=== PATIENT | female | born 1950 | race Caucasian/White ===

== ENCOUNTER → 2023-06-12 11:55 | Outpatient (REF) | payer MEDICARE, OTHER, SELFPAY | LOC: REG 11:55 | PROVIDERS: ATTENDING PHYSICIAN Nurse Practitioner Primary Care | DX: C50.911 Malignant neoplasm of unspecified site of right female breast (principal); M81.0 Age-related osteoporosis without current pathological fracture; C79.51 Secondary malignant neoplasm of bone; C78.7 Secondary malignant neoplasm of liver and intrahepatic bile duct; C79.32 Secondary malignant neoplasm of cerebral meninges; L63.0 Alopecia (capitis) totalis; D64.81 Anemia due to antineoplastic chemotherapy; F43.21 Adjustment disorder with depressed mood | CPT/HCPCS: 36415; 86850; 86900; 86901; 86920 ==

== ENCOUNTER 2023-06-14 12:47 | Outpatient (RCR) | payer MEDICARE, OTHER, SELFPAY ==
[2023-06-14 13:39] VITALS: BP 117/68
[2023-06-14 13:56] VITALS: BP 116/68
[2023-06-14 15:42] VITALS: BP 112/67
== END 2023-06-15 23:59 | disposition home or self-care (01) ==
LOC: OID 12:47
PROVIDERS: ATTENDING PHYSICIAN Internal Medicine Hematology & Oncology; FAMILY PHYSICIAN Family Medicine
DX: C50.911 Malignant neoplasm of unspecified site of right female breast (principal)
CPT/HCPCS: 36415; 36430; 86850; 86900; 86901; 86920; P9016

== ENCOUNTER 2023-07-13 17:32 | Inpatient (IN) | payer MEDICARE, OTHER, SELFPAY ==
[2023-07-13 13:22] VITALS: BP 102/75; BMI 17.2
--- NOTE | 2023-07-13 14:31 | ED.GENMED ---
History of Present Illness
General
Chief Complaint: Abnormal Lab Value
Source: patient and family
Time Seen by Provider: 07/13/23 13:58
Travel History
Have you had any contact with someone who has COVID-19?: No
Do you have any symptoms of coronavirus? Fever > 100 degrees, chills, cough, shortness of breath, sore throat, loss of taste or smell, muscle aches, or headache?: No
History of Present Illness
History of Present Illness:
72-year-old female with past medical history of metastatic breast cancer, CAD, previous TX presenting to the emergency department with family stating that patient had lab work done at [facility] yesterday and they got a phone call this morning stating
that it was abnormal and she needed to go to the hospital. They note that over the last few days patient has gotten very weak, having a difficult time caring for herself and performing her activities of daily living. Patient was recently moved
from [place] to a single-story apartment) to be closer to family but they state that patient is now not even able to get up and walk to the bathroom on her own. Patient last chemo was on June 26 and she is scheduled to start a new round on this
coming Monday. They endorse a mild cough with green sputum production and some mild shortness of breath. Patient has not had any known fevers, change in oral intake, abdominal pain or any other concerns. Her diagnosis is fairly guarded and they
just had a palliative care consultation within the last 2 days.
Patient's daughter had picture of the abnormal labs from [employer] that were done yesterday which showed a significant leukocytosis, significantly elevated ANC, acute kidney injury and mild transaminitis
Past History
Past History
ED Past Medical History: CAD, COPD, Hypercholesterolemia and TX
ED Past Surgical History: Cardiac and Other
Social History
Tobacco: Smoker
Alcohol: None
Drug: None
Personal:
Living: alone
Employment: Retired
Review of Systems
Review of Systems
All Other Systems: ROS reviewed and negative except as documented in HPI and ROS
Phy Exam
Physical Exam
Physical Exam:
GENERAL: Alert , in no apparent distress
EYE: conjunctiva clear
NECK: Supple
ENT: o/p clr, mmm.
CARDIAC: Regular rate and rhythm
LUNGS: Crackles diffuse posterior lung galvan, no acute respiratory distress, no wheezes/rales/rhonchi
abdomen: Soft, nontender, nondistended.
NEUROLOGICAL: Alert and oriented x 3 but does seem a little bit confused when speaking full sentences
SKIN: Warm and dry, skin intact.
MUSCULOSKELETAL: well perfused. 2+ pitting bilateral lower extremities to the proximal third tibia.
PSYCH: Normal and appropriate interaction.
Scores
Heart Failure Risk
Heart Failure Risk Score: Not Applicable
Heart Score for Chest Pain Patients
STEMI patient?: Not applicable
Withdrawal Assessment of Alcohol
Withdrawal Assessment Completed?: Not applicable
Course
Orders/Labs/Results
Orders:
Orders
07/13/23 14:21
Urinalysis Reflex To Culture Urgent
Date Specimen was Collected: 07/13/23
Time Specimen was Collected: 14:55
07/13/23 14:30
Lactic Acid Q4H
Comment: CANCEL 2nd LACTIC ACID IF 1st LACTIC ACID IS LESS THAN 2
07/13/23 14:38
Cefepime HCl [Maxipime] 2,000 mg IV NOW STA
07/13/23 14:39
Furosemide [Lasix] 40 mg IV NOW STA
07/13/23 14:43
Complete Blood Count/With Diff Urgent
Comprehensive Metabolic Panel Urgent
Lactic Acid Q4H
Comment: CANCEL 2nd LACTIC ACID IF 1st LACTIC ACID IS LESS THAN 2
Manual Differential Urgent
NT-proBNP Urgent
07/13/23 15:15
Blood Culture Q30M
MIKE Source: Blood/Venous
Specimen Description:
Blood Culture Q30M
MIKE Source: Blood/Venous
Specimen Description:
07/13/23 15:25
Influenza A+B Rapid Molecular Urgent
MIKE Source: Nasal Swab
Specimen Description:
07/13/23 16:29
Admit/Transfer Patient As Directed
Co-Sign Provider:
Level of Care: Inpatient admission
Assign to:: Telemetry
Physician / Group: evans
Diagnosis: pneumonia, chf exacerbation
Reason for Telemetry: Arrhythmia
Date to Stop Telemetry: 07/16/23
Time to Stop Telemetry: 11:00
Reason for Hospitalization: pneumonia, chf exacerbation
Expected length of stay greater than two midnights?: Yes
ELOS- Estimated Length of Stay in days: 2
I certify the patient meets the requirements for IP care: Yes
07/13/23 16:30
Code Status As Directed
Resuscitation Status: Full Code
07/13/23 16:32
CT Chest With Iv Contrast Urgent
Comment:
Reason For Exam: loculated effusion, empyema, lung mets
COVID-19 Antigen Urgent
Source: Nasal Swab
07/13/23 16:35
Respiratory Culture/Gram Stain Urgent
MIKE Source: Sputum
Specimen Description:
07/16/23 11:00
DC Protocol for Telemetry ONCE
Abnormal Lab Results
07/13/23
14:43
WBC 29.6 H 10^3/uL
(4.8-10.8)
RBC 2.95 L 10^6/uL
(4.20-5.40)
Hgb 8.0 L g/dL
(12.0-16.0)
Hct 25.2 L %
(37.0-47.0)
MCHC 31.7 L g/dL
(33.0-37.0)
RDW 24.6 H %
(11.5-14.5)
MPV 10.6 H fL
(7.4-10.4)
Abs Neuts (Manual) 21.9 H 10^3/uL
(1.4-6.5)
Band Neutrophils 23 H %
(0-3)
Lymphocytes (Manual) 4 L %
(20-51)
Sodium 132 L mmol/L
(135-145)
BUN 43 H mg/dl
(7-17)
AST 62 H U/L
(14-36)
ALT 49 H U/L
(0-35)
Alkaline Phosphatase 188 H U/L
(38-126)
Total Protein 6.0 L g/dl
(6.3-8.2)
Albumin 3.2 L g/dl
(3.5-5.0)
07/13/23 14:43
07/13/23 14:43
Vital Signs
Initial and Last Documented VS:
Initial Vital Signs
Temp Pulse Resp BP Pulse Ox
97.8 F 74 20 102/75 94
07/13/23 13:22 07/13/23 13:22 07/13/23 13:22 07/13/23 13:22 07/13/23 13:22
Last Documented Vital Signs
Temp Pulse Resp BP Pulse Ox
97.8 F 74 20 102/75 94
07/13/23 13:22 07/13/23 15:23 07/13/23 13:22 07/13/23 15:23 07/13/23 13:22
MDM/Problems Addressed
Differential Diagnosis Includes:
Pneumonia, viral syndrome progression of metastatic disease, pleural effusions
MDM/Problems Addressed:
72-year-old female with known past medical history of metastatic breast cancer, currently receiving chemotherapy presenting emergency department for gradual decline in her ability to care for self and perform activities of daily living. Had
abnormal blood work done yesterday which showed significant leukocytosis with elevated ANC. Clinical concern for sepsis given patient's compromised immune system. Will check labs, chest x-ray and septic. Anticipate admission. Patient follows
with oncology here at [facility], Dr. Szymanski
*Radiology
Radiology exam reviewed: preliminary read by ED provider (Interstitial edema, question left lower lobe lung infiltrate)
*Pulse Oximetry
Patient hypoxic: no
*[employer] Interpretation
Rate: normal
Rhythm: sinus
*Critical Care Note
Total Time (30-74mins, 75-104mins- exclusive of procedures): Not Applicable
Data Reviewed
Review of Other/Old Records Reveals: Labs and Radiology Studies
Patient Management
Discussion with other providers: Hospitalist
Escalation/DeEscalation of care consider admission/obs:
Patient with worsening leukocytosis, bandemia and significantly elevated ANC. Acute kidney injury improved from yesterday's lab work. BNP significantly elevated at greater than 11,000. Lasix and IV Maxipime. Hospitalist team is aware and accepts
for continued evaluation and treatment.
ED Attending Note
-
Portions of this chart may have been created with voice recognition software.� Occasional wrong word or��sound alike� substitutions may have occurred due to the inherent limitations of voice recognition software.
Discharge Plan
Departure
Patient Disposition: Admit
Date of Disposition: 07/13/23
Time of Disposition: 15:24
Presentation/result/management discussed w/ accepting MD/DO: Hospitalist
Discharge Problem:
Pneumonia, CHF (congestive heart failure)
Prescriptions:
No Action
memantine 10 mg Tablet
10 mg PO BID
Xtampza ER 9 mg Cap,Sprinkl,Er12hr(Dont Crush)
9 mg PO BID
sertraline [Zoloft] 25 mg Tablet
25 mg PO DAILY
ondansetron HCl 4 mg Tablet
4 mg PO Q8HPRN PRN (Reason: nausea)
acetaminophen [Tylenol] 325 mg Tablet
650 mg PO Q4HPRN PRN (Reason: mild pain)
docusate sodium [Colace] 100 mg Capsule
100 mg PO HS
xylitol 500 mg Muco-Adhesive Buccal Tablet
1 mg MUCOUS MEMBRANE Q2HPRN PRN (Reason: dry mouth)
Referrals:
Mahogany Freitas MD [Family Provider] -
Interventions
Interventions:
*Risk Screen - Suicide Last Done: 07/13/23 13:22
*Neglect/Abuse Screening Last Done: 07/13/23 13:22
ED- Fall Risk Assessment Last Done: 07/13/23 13:22
*ED COVID-19 Vaccine History Last Done: 07/13/23 13:22
Discharge Date and Time
Print Language: IRISH
[2023-07-13 15:06] LABS: Hematocrit 25.2 % (37.0-47.0); Mean Corp Hgb Conc. 31.7 g/dL (33.0-37.0); Mean Corpuscular Hgb 27.1 pg (27.0-31.0); Mean Corpuscular Volume 85.4 fL (81.0-99.0); Mean Platelet Volume 10.6 fL (7.4-10.4); Platelet Count 138 10^3/uL (130-400); Red Blood Cell Count 2.95 10^6/uL (4.20-5.40); Red Cell Dist. Width 24.6 % (11.5-14.5); White Blood Cell Count 29.6 10^3/uL (4.8-10.8)
[2023-07-13 15:08] LABS: Lactic Acid 1.1 mmol/L (0.7-2.0)
[2023-07-13 15:09] LABS: ALT (SGPT) 49 U/L (0-35); AST (SGOT) 62 U/L (14-36); Albumin 3.2 g/dl (3.5-5.0); Alkaline Phosphatase 188 U/L (38-126); Blood Urea Nitrogen 43 mg/dl (7-17); Calcium 8.7 mg/dl (8.4-10.2); Carbon Dioxide 27 mmol/L (22-30); Chloride 98 mmol/L (98-107); Estimated Creatinine Clearance 39 ml/min; Glucose 91 mg/dl (70-99); Potassium 3.8 mmol/L (3.5-5.1); Sodium 132 mmol/L (135-145); Total Bilirubin 1.2 mg/dl (0.2-1.3); eGFR > 60.00
[2023-07-13 15:17] LABS: NT-proBNP 11200 pg/ml
[2023-07-13] MEDS: LASIX 40 MG IV (15:23)
[2023-07-13] MEDS: MAXIPIME 2000 MG IV (15:24)
[2023-07-13 16:06] LABS: Absolute Neutrophils -Man Diff 21.9 10^3/uL (1.4-6.5); Band Neutrophils 23 % (0-3); Lymphocytes 4 % (20-51); Metamyelocytes 4 % (-); Monocytes 8 % (2-9); Myelocytes 10 % (-); Segmented Neutrophils 51 % (42-75)
[2023-07-13 16:07] LABS: Anisocytosis 1+; Macrocytosis FEW; Normal RBC Morphology No; Nucleated Red Blood Cells 2 (-); Platelets Checked Yes; Polychromasia 1+; Total Cells Counted 100
--- NOTE | 2023-07-13 16:34 | HPS.HSE ---
Family Physician
-
Family Physician: Mahogany Freitas
Chief Complaint
-
weakness
History of Present Illness
72-year-old female past medical history of metastatic breast cancer on chemotherapy, CAD, COPD, hypercholesteremia, presenting to the emergency room because patient had lab work done at [facility] yesterday and family received a phone call stating the
lab work was abnormal and she needed to go to the hospital. Labs showed significant leukocytosis, elevated ANC, acute kidney injury and mild transaminitis. Over the past few days patient has gotten very weak and difficulty caring for herself and
performing activities of daily living. Patient was not even able to get up and walk to the bathroom on her own at this time.
Patient's last chemotherapy was on June 26 and she is scheduled for a new round this coming Monday. She has mild cough with green sputum and mild shortness of breath for the past few days. Patient has not had any fever, change in oral intake,
abdominal pain or nausea vomiting or diarrhea. He has also had increased lower extreme edema. No weight gain or weight loss.
Patient has been seeing palliative care within the past 2 days given her guarded prognosis. The metastatic breast cancer with metastasis to lining of brain, bone and back and liver but not to lung as per their knowledge.
Patient smokes 1 cigarette a day. No alcohol use.
Medical History
Past Medical History
Past Medical History: Reports Other (metastatic breast cancer on chemotherapy, CAD, COPD, hypercholesteremia)
Past Surgical History: Reports None
Social History
Tobacco: Smoker
Alcohol: None
Drug: None
Family History
Family History: Not pertinent
Allergies / Home Medications
Allergies reflects when Allergies were last updated in [employer].
Home Medications with original date entered in [employer]
Allergy/Medication List:
Allergies
Allergy/AdvReac Type Severity Reaction Status Date / Time
propofol Allergy Unknown Verified 07/13/23 13:21
animals Allergy sneezing Uncoded 07/13/23 13:21
preservatives Allergy sneezing Uncoded 07/13/23 13:21
seasonal Allergy sneezing Uncoded 07/13/23 13:21
Home Medications
memantine 10 mg tablet 10 mg PO BID 08/09/22
oxycodone myristate 9 mg capsule sprinkle extended release 12 hr(DON'T CRUSH) (Xtampza ER) 9 mg PO BID 08/09/22
ondansetron HCl 4 mg tablet 4 mg PO Q8HPRN PRN nausea 06/14/23
sertraline 25 mg tablet (Zoloft) 25 mg PO DAILY 06/14/23
acetaminophen 325 mg tablet (Tylenol) 650 mg PO Q4HPRN PRN mild pain 07/13/23
docusate sodium 100 mg capsule (Colace) 100 mg PO HS 07/13/23
xylitol 500 mg mucosal adhesive tablet 1 mg mucous membrane Q2HPRN PRN dry mouth 07/13/23
Review of Systems
-
History Source: Patient
A 12 point ROS was completed and negative except as noted: Yes
Constitutional: Reports No Symptoms
EENT: Reports No Symptoms
Respiratory: Reports See HPI
Cardiac: Reports No Symptoms
Abdomen/GI: Reports No Symptoms
: Reports No Symptoms
Musculoskeletal: Reports No Symptoms
Skin: Reports No Symptoms
Neurological: Reports No Symptoms
Endocrine: Reports No Symptoms
Hematologic/Lymphatic: Reports No Symptoms
Psych: Reports No Symptoms
Physical Exam
Vital Signs
Vital Signs
Temp Pulse Resp BP Pulse Ox
97.8 F 74 20 102/75 94
07/13/23 13:22 07/13/23 15:23 07/13/23 13:22 07/13/23 15:23 07/13/23 13:22
Physical Exam
General: Well Developed, Well Nourished and No Apparent Distress
HEENT: NormoCephalic, Moist mucous membranes and Atraumatic
Respiratory: Clear
Cardiac: S1/S2 and Regular Rhythm; No Murmur or Rub
GI: Soft, Non Tender, Non Distended and Normal Bowel Sounds; No Organomegaly
Rectal: Deferred by Provider
Musculoskeletal: No Clubbing, No Cyanosis and No Edema
Skin: No Rash
Neuro: Nonfocal/grossly intact
Laboratory Results
-
07/13/23 14:43
07/13/23 14:43
Laboratory Results
Lactic Acid 1.1 mmol/L (0.7-2.0) 07/13/23 14:43
Total Bilirubin 1.2 mg/dl (0.2-1.3) 07/13/23 14:43
AST 62 U/L (14-36) H 07/13/23 14:43
ALT 49 U/L (0-35) H 07/13/23 14:43
Alkaline Phosphatase 188 U/L (38-126) H 07/13/23 14:43
Data Reviewed
-
Lab Data: Labs Reviewed by me
Old Records: Reviewed
Impression/Plan
-
IMPRESSION:
PLAN:
# Dyspnea multifactorial secondary to left lower lobe pneumonia/possible loculated pleural effusion as well as CHF exacerbation
-See individually below
# Left lower lobe pneumonia versus loculated pleural effusion
-Leukocytosis of 29
-Influenza negative
-Check COVID
-Check sputum culture
-Check blood cultures
-Check CT scan to evaluate for complex pleural effusion/empyema and lung metastases
-Vancomycin/Zosyn
# Acute CHF exacerbation
-Cardiac BNP of 11,000
-Check I's and O's, daily weights
-40 IV Lasix daily
-check echocardiogram
# Transaminitis likely secondary to hepatic venous congestion versus liver metastases
-Monitor with diuresis
# Interstitial fibrosis/lymphangitic spread of tumor
-As seen on chest x-ray
-Evaluate on CT chest
# Acute on chronic normocytic anemia likely chemotherapy related
-Hemoglobin of 8 from 10.4
-Check iron studies
History of metastatic breast cancer with metastases to lining of brain, bone, back and liver
-Continue oxycodone
-Continue Zofran
Coronary artery disease with history of stents
COPD
Hypercholesterolemia
Dementia/depression
-Continue memantine
-Continue Zoloft
Full code
DVT prophylaxis-heparin
Cardiac diet
[2023-07-13 19:54] VITALS: BP 118/68; BMI 19.3
--- NOTE | 2023-07-13 20:00 | PTCARENOTE ---
Pt arrived from ED via stretcher and was a stand and pivot to bed. Pt is AAx3, w/o complaints of pain, has R subq port, R lower extremity edema, and VSS. Pt is oriented to room resting comfortably w/ family at bedside and call domingo within reach.
[2023-07-13 20:24] LABS: Iron 113 ug/dl (37-170)
[2023-07-13 20:33] LABS: Percent Saturation 44 % (20-50); Total Iron Binding Capacity 254 ug/dl (265-497)
[2023-07-13] MEDS: VANCOCIN 275 MG IV (22:11)
[2023-07-13] MEDS: HEPARIN 5000 UNITS SC (22:12)
[2023-07-13 22:13] LABS: Folate 15.5 ng/ml (2.76-20); Vitamin B12 > 1000 pg/ml (239-931)
[2023-07-13] MEDS: NAMENDA 10 MG PO (22:13)
[2023-07-13] MEDS: OXYCONTIN (CONTROLLED RELEASE) 10 MG PO (22:16)
[2023-07-13 23:18] VITALS: BMI 19.3
[2023-07-13 23:50] VITALS: BP 88/51
[2023-07-14] VITALS (28 sets, daily range): BP systolic 79–131; BP diastolic 47–78; BMI 19.3
[2023-07-14] MEDS: ZOSYN 50 IV ×5 (00:17→23:35)
[2023-07-14 01:43] LABS: COVID-19 Antigen Negative (Negative)
[2023-07-14 06:16] LABS: Hematocrit 23.8 % (37.0-47.0); Hemoglobin 7.4 g/dL (12.0-16.0); Mean Corp Hgb Conc. 31.1 g/dL (33.0-37.0); Mean Corpuscular Hgb 26.9 pg (27.0-31.0); Mean Corpuscular Volume 86.5 fL (81.0-99.0); Platelet Count 120 10^3/uL (130-400); Red Blood Cell Count 2.75 10^6/uL (4.20-5.40); Red Cell Dist. Width 25.4 % (11.5-14.5); White Blood Cell Count 30.3 10^3/uL (4.8-10.8)
[2023-07-14 06:45] LABS: ALT (SGPT) 39 U/L (0-35); AST (SGOT) 49 U/L (14-36); Albumin 2.9 g/dl (3.5-5.0); Alkaline Phosphatase 182 U/L (38-126); Blood Urea Nitrogen 39 mg/dl (7-17); Calcium 8.2 mg/dl (8.4-10.2); Carbon Dioxide 27 mmol/L (22-30); Chloride 99 mmol/L (98-107); Estimated Creatinine Clearance 44 ml/min; Glucose 82 mg/dl (70-99); Potassium 3.5 mmol/L (3.5-5.1); Sodium 134 mmol/L (135-145); Total Bilirubin 1.1 mg/dl (0.2-1.3); Total Protein 5.4 g/dl (6.3-8.2); eGFR > 60.00
[2023-07-14 07:18] LABS: Segmented Neutrophils 75 % (42-75)
[2023-07-14 07:19] LABS: Absolute Neutrophils -Man Diff 26.9 10^3/uL (1.4-6.5); Band Neutrophils 14 % (0-3); Lymphocytes 2 % (20-51); Metamyelocytes 1 % (-); Monocytes 6 % (2-9); Myelocytes 2 % (-)
[2023-07-14 07:20] LABS: Platelets Checked Yes
[2023-07-14 07:23] LABS: Anisocytosis 2+; Hypochromasia 1+; Macrocytosis 2+; Normal RBC Morphology No; Nucleated Red Blood Cells 3 (-)
[2023-07-14 07:24] LABS: Ovalocytes 1+; Poikilocytosis 1+; Total Cells Counted 100
--- NOTE | 2023-07-14 08:42 | PHA.VAN.IN ---
Assessment
- Assessment
Renal Function: Appears similar to baseline
Concomitant Antimicrobials: piperacillin/tazobactam
AUC Dosing Plan
- Dosing Variables
Dosing Weight (kg): 51
Dosing CrCl (ml/min): 44
Vd coefficient (L/kg): 0.7
- Empiric Dosing
Initial / Loading Dose: 1250 mg - 07/13/23 ~2200
Maintenance Regimen: 750 mng q24 h - first dose 1200 07/13 then daily at 0600 starting 07/14
Estimated AUC (mcg*h/mL): 524
Estimated Peak (mcg*h/mL): 33.6
Estimated Trough (mcg/ml): 13.1
Estimated Half Life (H): 16.9
- Monitoring
No levels ordered at this time: consider levels when pt reaches steady state
Pharmacokinetics Vancomycin I
- -
Patient Age: 72
Patient Sex: Female
Vancomycin Day #: 1
Indication: Pulmonary/Respiratory
Requesting Provider: Huong
Pertinent Antimicrobial Allergies:
propofol, preservatives, seasonal
Height / Weight:
Height 5 ft 4 in
Actual Weight 51.029 kg
Pertinent Past Medical History: met. breast cancer on chemo (last chemo 06/26)
- Vital Signs / Lab Results
Temp Pulse Resp BP Pulse Ox
97.5 F 78 13 99/56 96
07/14/23 07:49 07/14/23 07:49 07/14/23 07:49 07/14/23 07:49 07/14/23 07:49
Lab Results - Hematology
07/13/23 07/14/23
14:43 05:16
WBC 29.6 H 30.3 H
Band Neutrophils 23 H 14 H D
Lab Results - Chemistry
07/13/23 07/14/23
14:43 05:16
BUN 43 H 39 H
Creatinine 0.9 0.9
Estimated Creat Clear 39 44
Albumin 3.2 L 2.9 L
07/13/23 07/13/23
14:30 14:43
Lactic Acid Cancelled 1.1
Microbiology Results
07/13/23 15:25 Influenza Types A & B (SABRA) - Final
Nasal Swab Negative for Influenza A & B, NAAT
Negative results must be combined with clinical observations
and patient history.
Nucleic Acid Amplification test (NAAT)performed on the
[employer] ID NOW platform.
--- NOTE | 2023-07-14 09:00 | W.PN.HOSP.TC ---
Addendum entered and electronically signed by Madi Angeles MD 07/14/23 14:09:
Patient's blood pressure is 82/48 after midodrine 5 mg p.o.
Given additional dose of midodrine 5 mg p.o. now, transfer to ICU, start Levophed.
Original Note:
Today's Communication/Plan
-
see bold
Assessment / Plan
Assessment / Plan
HPI: 72-year-old female past medical history of metastatic breast cancer on chemotherapy, CAD, COPD, hypercholesteremia, presenting to the emergency room because patient had lab work done at [facility] yesterday and family received a phone call stating
the lab work was abnormal and she needed to go to the hospital. Labs showed significant leukocytosis, elevated ANC, acute kidney injury and mild transaminitis. Over the past few days patient has gotten very weak and difficulty caring for herself
and performing activities of daily living. Patient was not even able to get up and walk to the bathroom on her own at this time.
Patient's last chemotherapy was on June 26 and she is scheduled for a new round this coming Monday. She has mild cough with green sputum and mild shortness of breath for the past few days. Patient has not had any fever, change in oral intake,
abdominal pain or nausea vomiting or diarrhea. He has also had increased lower extreme edema. No weight gain or weight loss.
Patient has been seeing palliative care within the past 2 days given her guarded prognosis. The metastatic breast cancer with metastasis to lining of brain, bone and back and liver but not to lung as per their knowledge. Patient smokes 1 cigarette
a day. No alcohol use.
#Hypotension
Unable to give IV fluids secondary to CHF
Blood pressure dropped to 86/50 after IV Lasix
Give midodrine 5 mg stat, continue midodrine 5 mg every 4 hours as needed SBP less than 90
Transfer to IMU
# Dyspnea multifactorial secondary to left lower lobe pneumonia/possible loculated pleural effusion as well as CHF exacerbation
Treat as below
#Left lower lobe pneumonia versus loculated pleural effusion
Patient has a leukocytosis with bandemia
COVID-negative, influenza negative
Chest CT shows CHF, osseous metastases, right mastectomy
Check procalcitonin
Continue IV antibiotics for now, trend white count
# Acute CHF exacerbation
#Bilateral lower extremity edema
Cardiac BNP of 11,000
Continue Lasix 40 mg IV with hold parameters, start TERA compression stockings
Monitor creatinine, weights, consult cardiology, f/u echo
# Transaminitis likely secondary to hepatic venous congestion versus liver metastases
Monitor with diuresis
# Acute on chronic normocytic anemia likely chemotherapy related
Hemoglobin 7.4, was 8.0, down from baseline 10.4
Monitor, transfuse for hemoglobin less than 7.0
#History of metastatic breast cancer with metastases to lining of brain, bone, back and liver
Patient seeing palliative care outpatient, follows up with Dr. Lepe, currently getting outpatient chemo
Family again asking about prognosis, consult oncology
Continue oxycodone and Zofran
Coronary artery disease with history of stents
COPD
Hypercholesterolemia
Dementia/depression
-Continue memantine
-Continue Zoloft
DVT prophylaxis�subcu Lovenox
Full code as confirmed by patient
Updated family at bedside 07/13
Total time spent to see the patient on the floor, examine the patient, review data and lab results, discuss treatment plan with patient, nursing staff around 55 minutes.
Physical Exam
General: Appears chronically ill, no acute distress
HEENT: Normocephalic, Atraumatic, EOMI, MMM
Respiratory: Bibasilar crackles
Cardiac: Normal S1/S2, Regular Rate and Rhythm
Chest wall: Port noted on right chest wall
GI: Soft, Nontender, Nondistended, Normal Bowel Sounds
Extremities: No Clubbing, Cyanosis
Bilateral lower extremity edema noted
Neuro: Nonfocal/Grossly Intact
Psych: Calm, Cooperative
Anticipated Discharge: > 48 hours
Subjective/Interval History
-
Date of Service: July 14, 2023
Patient's breathing has improved. She denies shortness of breath, chest pain, or fever. No nausea, no vomiting, no abdominal pain.
Objective Data
-
Labs:
Laboratory Results
07/14/23
05:16
WBC 30.3 H
Hgb 7.4 L
Hct 23.8 L
Plt Count 120 L
Sodium 134 L
Potassium 3.5
Chloride 99
Carbon Dioxide 27
BUN 39 H
Creatinine 0.9
Glucose 82
Calcium 8.2 L
Total Bilirubin 1.1
AST 49 H
ALT 39 H
Alkaline Phosphatase 182 H
Vital Signs:
Vital Signs
Temp Pulse Resp BP Pulse Ox
97.5 F 78 13 99/56 96
07/14/23 07:49 07/14/23 07:49 07/14/23 07:49 07/14/23 07:49 07/14/23 07:49
I&O
07/13/23 07/14/23 07/15/23
06:59 06:59 06:59
Intake Total 830 / 830
Balance 830 / 830
[2023-07-14] MEDS: LASIX 40 MG IV (10:20)
[2023-07-14] MEDS: HEPARIN 5000 UNITS SC ×2 (10:21→20:08)
[2023-07-14] MEDS: OXYCONTIN (CONTROLLED RELEASE) 10 MG PO ×2 (10:22→20:09)
[2023-07-14] MEDS: ZOLOFT 25 MG PO (10:23)
[2023-07-14] MEDS: NAMENDA 10 MG PO ×2 (10:24→20:09)
[2023-07-14] MEDS: MIRALAX 17 GRAMS PO ×2 (11:45→20:09)
[2023-07-14] MEDS: SENOKOT-S 2 TABLET PO ×2 (11:45→20:09)
[2023-07-14] MEDS: VANCOCIN 150 IV (13:06)
[2023-07-14] MEDS: ProAmatine 5 MG PO ×2 (13:07→14:07)
--- NOTE | 2023-07-14 13:39 | VNURNOTE ---
Home Health Liaison met with patient and daughter Saumya at 1215 to discuss [facility] nurse/therapy, visits, schedule and homebound status. Patient is agreeable and understands that visits at home will be 2-3 x per week to assess and teach medical
management. Patient does not have a scale. Request made to [facility] to provide scale on start of care visit.
[facility] brochure provided with contact information. Patient is aware that [facility] will contact her for start of care in 1-2 days after discharge from .
[facility] referral completed in [facility].
--- NOTE | 2023-07-14 13:47 | PTCARENOTE ---
patients BP 82/50, rechecked manually 86/50. patient reporting feeling weak and slight dizziness. Dr Angeles notified and ordered midodrine 5mg. dose given by student nurse. plan of care on going.
--- NOTE | 2023-07-14 14:14 | PTCARENOTE ---
BP after midodrine given 82/48. Patient in bed, just feeling weak. family at bedside. Dr Angeles notified and ordered repeat dose of midodrine to be given. done at 1405. Patient to be moved to ICU, patient and family aware and in agreement. plan of care
on going.
[2023-07-14 15:13] LABS: Procalcitonin 0.64 ng/ml (0.0-0.25)
--- NOTE | 2023-07-14 15:20 | PTCARENOTE ---
Rec'd pt at 1500 via bed from 4 east. Rec'd pt awake alert and oriented. No c/o pain or discomfort. Speech is clear. Skin is pale pink wm and dry. Foam dressing intact on back. Respirs are unlabored- Rec'd pt on RA with sats of 88-90%- Pt has dk
nailpolish on nailbeds. Sensor placed on earlobe. Pt placed on 2l nc with sats up to 94-95%. BS are decreased with crackles 1/3-1/2 up bilaterally. Monitor SR. + pulses. DP pulses are sl weak. +1 LE edema. KH TEDS in place. VS as documented. Will
hold on starting Levophed currently as MAP's >65. Abd is soft with + BS. Denies nausea. Voided on arrival yellow urine. Diana care given. RSQ port capped. Pt repositioned. CHG bath given. Call domingo in reach. Plan of care reviewed with pt. Will
monitor closely
--- NOTE | 2023-07-14 15:26 | CON.CAR ---
Addendum entered and electronically signed by Naseem Yousif MD 07/14/23 17:36:
72 yo female with metastatic breast cancer, on salvage therapy with Halaven, CAD with stenting 2008, has been transferred to ICU for treatment of septic shock in setting of suspected PNA. She is on antibiotics and levophed. She reports some SOB,
and also edema. Exam with RRR, II systolic murmur at LLSB, 1+ LE edema. WBC 30. Albumin 2.9.
Echo: EF 70-75%, mild/moderate MR, mild/moderate , severe TR, PASP 39.
Edema. Multifactorial. Likely component of HFPEF, also low albumin as well, and can be side effect of Halaven.
Given low BP, will hold lasix. Will reassess BP and volume status in AM to decide on when to resume lasix.
Original Note:
Consultation
Consultation Request
Date/Time Consultation Requested: 07/14/23 5147
Date/Time Consultation Performed: 07/14/23 1538
Requesting Provider: Dr. Angeles
Performing Provider: Lisa WEAVER for Dr. Yousif
Reason for Consultation: CHF
Medical History
-
Chief Complaint: weakness, abnormal labs
History of Present Illness:
72 y/o female with metastatic breast cancer on chemotherapy, CAD with AR and history of stenting 2008, COPD, tobacco use, HLD who is here for evaluation of weakness and abnormal lab values noted as OP. She is seen to have significant leukocytosis
and is being treated for pneumonia. BNP is elevated 11,[address] suggestive of CHF, so she was given IV Lasix. She does not report worsened SOB, orthopnea, or weight gain, but does report worsened LE edema over the past month or so. It did
improve with IV Lasix. She is now transferred to the ICU since BP is low and Levophed to be initiated. Echo as below.
Past Medical History
Past Medical History: CAD, Cancer, COPD and Hypercholesterolemia
Social History
Tobacco: Smoker
Alcohol: None
Family History
Family History: CAD (dad [place])
Allergies / Home Medications
Allergy/AdvReac Type Severity Reaction Status Date / Time
propofol Allergy Unknown Verified 07/13/23 13:21
animals Allergy sneezing Uncoded 07/13/23 13:21
preservatives Allergy sneezing Uncoded 07/13/23 13:21
seasonal Allergy sneezing Uncoded 07/13/23 13:21
�Medication �Instructions �Recorded �Confirmed �Type
memantine 10 mg tablet 10 mg PO BID Mental Health/Anxiety 08/09/22 07/13/23 History
oxycodone myristate 9 mg capsule 9 mg PO BID Pain 08/09/22 07/13/23 History
sprinkle extended release 12
hr(DON'T CRUSH) (Xtampza ER)
ondansetron HCl 4 mg tablet 4 mg PO Q8HPRN PRN nausea 06/14/23 07/13/23 History
sertraline 25 mg tablet (Zoloft) 25 mg PO DAILY Mental 06/14/23 07/13/23 History
Health/Anxiety
acetaminophen 325 mg tablet 650 mg PO Q4HPRN PRN mild pain 07/13/23 07/13/23 History
(Tylenol)
docusate sodium 100 mg capsule 100 mg PO HS STOOL SOFTENER 07/13/23 07/13/23 History
(Colace)
xylitol 500 mg mucosal adhesive 1 mg mucous membrane Q2HPRN PRN 07/13/23 07/13/23 History
tablet dry mouth
Review of Systems
-
History Source: Patient
All other systems: Negative unless noted
Constitutional: Other (weakness)
Musculoskeletal: Edema
Physical Exam
Vital Signs
Temp Pulse Resp BP Pulse Ox
97.7 F 83 18 82/48 96
07/14/23 13:59 07/14/23 13:59 07/14/23 13:59 07/14/23 14:07 07/14/23 13:59
Lab Results
07/14/23 05:16
07/14/23 05:16
Pjk-W-Bloiesocjsm Pept [id number] pg/ml 07/13/23 14:43
Physical Exam
General: No Apparent Distress
Respiratory: Crackles (bases) and Other (on O2 by NC)
Cardiac: Regular Rhythm and Murmur (II/ systolic)
Musculoskeletal: Edema (mild BLE edema)
Skin: Warm and Dry
Neuro: AO x 3
Psych: Calm
Impression / Plan
-
Leukocytosis, PNA:
-getting abx
-BP now on low end- Levophed to be started- this requires intensive monitoring
Metastatic breast CA:
-oncology is consulted
Acute HFpEF:
-LE edema improved s/p lasix
-patient with hypotension, hold off on further lasix for now as she improves from infectious standpoint
-echo this admit hyperdynamic left ventricular systolic function. LV ejection fraction is 70-75%. Stage II diastolic dysfunction. Tiara EPIQ left ventricular global longitudinal strain is -20.1% (normal). Mild/moderate mitral regurgitation.
Mild/moderate aortic stenosis (low flow, low gradient). Peak mean gradients are 12/5 mmHg, with calculated SATNAM 1.4cm2. SVI 29. Mild aortic regurgitation. Severe tricuspid regurgitation. Mildly elevated PASP. Estimated pulmonary artery pressure of 39
mmHg.
CAD with hx stenting:
-denies any CP
-has not been on ASA- should resume
-follow hgb
Data Reviewed
-
EKG: Tracing Personally Visualized and interpreted (SR with RBBB)
Radiology: Report Reviewed by me
CT Scan: Report Reviewed by me (chest CT: Moderate congestive heart failure, Extensive blastic osseous metastasis, Right mastectomy)
Medical Tests (Nuc Med, Echo etc): Report Reviewed by me (Echo 07/14/23: LV ejection fraction is 70-75%. Stage II diastolic dysfunction . Tiara EPIQ left ventricular global longitudinal strain is -20.1% (normal). Mild/moderate mitral
regurgitation.Mild/moderate aortic stenosis (low flow, low gradient). )
Labs: Labs Reviewed by me
--- NOTE | 2023-07-14 15:28 | CON.INTV ---
Consultation
Consultation Request
Date/Time Consultation Requested: 07/14/2023 - 145
Date/Time Consultation Performed: 07/14/2023 - 1520
Requesting Provider: Dr. Angeles
Performing Provider: Dr. Yañez
Reason for Consultation: Hypotension on vasopressors
Medical History
-
Chief Complaint: Weak and SOB
History of Present Illness:
72-year-old female tobacco smoker with a past medical history of CAD s/p coronary stents x 2, hyperlipidemia, history of metastatic breast cancer on chemotherapy with history of brain radiation (2022), GERD, ADHD and anemia who presents with
abnormal outpatient labs (worsening leukocytosis) with altered mental status and shortness of breath. Since this past Monday prior to arrival, the patient has been more short of breath and weak. She also has had worsening lower extremity
swelling. Her shortness of breath is associated with increased phlegm production and normally she does not cough up this much phlegm. Although she is a longtime tobacco smoker, she does not carry diagnosis of COPD. She does have severe
centrilobular emphysema on CT chest imaging. They had saw their PCP on Monday and blood work was obtained showing leukocytosis. Per the family (I spoke with daughter, Saumya, and the patient's younger sister, Sia) the patient has been more
altered as well last few days. She was brought in for further evaluation and was afebrile to 97.8 �F, heart rate 74, respiratory rate 20, BP 102/75 and saturating 94% on room air. She had leukocytosis to 29.6, anemic to 8, thrombocytopenia 138,
hyponatremic to 132, proBNP was elevated at 11,200 (no prior to compare to), and CXR showed hyperinflation consistent with COPD with reticular interstitial thickening and nodular thickening of the left pleura. CT chest was obtained showing
cephalization of the vasculature with prominent bronchovascular markings and extensive parenchymal airspace disease concerning for congestive heart failure versus pneumonia, and also imaging showed extensive blastic osseous metastasis with evidence
of right-sided mastectomy. She was started on antibiotics with cefepime and also given Lasix 40 mg. Due to hypotension with SBP in the 80s on 07/14/2023, patient was started on Levophed and transferred to the ICU for further care. Canvas Worker Apprentice
service now consulted for additional management/recommendations.
When I saw the patient she was laying in bed in no acute distress. She still feels weak but otherwise feels a little bit better since she has been admitted. Current vitals are BP 126/62 on Levophed at 4mcg/min, heart rate 78, RR: 19 breaths/min,
saturating 93% on 1.5 L/min nasal cannula. The patient is not on home oxygen normally. The patient currently denies chest pain, headache, shortness of breath, abdominal pain, nausea, diarrhea, fevers or chills.
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
CAD s/p angioplasty with stent placement x 2 (2008), hyperlipidemia, history of adjustment disorder with depressed mood, osteoporosis, anemia due to antineoplastic chemotherapy
PSHx: Mastectomy (2008 � right breast)
Past Medical History
Past Medical History: Other (above as per HPI)
Past Surgical History: Other (above as per HPI)
Social History
Tobacco: Smoker (1PPD x 50 years however last 3 days has been smoking 0-1 cigarettes/day)
Alcohol: Former (Former alcoholic - sober since 2012)
Drug: None
Family History
Family History: Reviewed & Not Pertinent
Allergies / Home Medications
Allergies
Allergy/AdvReac Type Severity Reaction Status Date / Time
propofol Allergy Unknown Verified 07/13/23 13:21
animals Allergy sneezing Uncoded 07/13/23 13:21
preservatives Allergy sneezing Uncoded 07/13/23 13:21
seasonal Allergy sneezing Uncoded 07/13/23 13:21
Home Medications
�Medication �Instructions �Recorded �Confirmed �Last Taken �Type
memantine 10 mg tablet 10 mg PO BID Mental Health/Anxiety 08/09/22 07/13/23 07/13/23 History
oxycodone myristate 9 mg capsule 9 mg PO BID Pain 08/09/22 07/13/23 07/13/23 History
sprinkle extended release 12
hr(DON'T CRUSH) (Xtampza ER)
ondansetron HCl 4 mg tablet 4 mg PO Q8HPRN PRN nausea 06/14/23 07/13/23 06/09/23 History
sertraline 25 mg tablet (Zoloft) 25 mg PO DAILY Mental 06/14/23 07/13/23 07/13/23 History
Health/Anxiety
acetaminophen 325 mg tablet 650 mg PO Q4HPRN PRN mild pain 07/13/23 07/13/23 Unknown History
(Tylenol)
docusate sodium 100 mg capsule 100 mg PO HS STOOL SOFTENER 07/13/23 07/13/23 Unknown History
(Colace)
xylitol 500 mg mucosal adhesive 1 mg mucous membrane Q2HPRN PRN 07/13/23 07/13/23 Unknown History
tablet dry mouth
Review of Systems
-
History Source: Patient
All other systems: Negative unless noted (12 point ROS performed and is negative unless mentioned above.)
Vitals / Labs / Diagnostic Testing
Vital Signs
Temp Pulse Resp BP Pulse Ox
98.4 F 75 16 88/53 94
07/14/23 15:32 07/14/23 15:30 07/14/23 15:30 07/14/23 15:30 07/14/23 15:30
Lab Data
07/14/23 05:16
07/14/23 05:16
Laboratory Results
07/14/23
16:16
PT 17.9 H
INR 1.49
APTT 36.8 H
Microbiology
07/13/23 15:15 Blood/Venous Blood Culture - Preliminary
No Growth in 24 hours- Final report to follow
07/13/23 15:15 Blood/Venous Blood Culture - Preliminary
No Growth in 24 hours- Final report to follow
07/14/23 09:19 Nose Nasal Screen MRSA (PCR) - Final
MRSA not detected - performed by PCR methodology.
07/13/23 15:25 Nasal Swab Influenza Types A & B (SABRA) - Final
Negative for Influenza A & B, NAAT
Negative results must be combined with clinical observations
and patient history.
Nucleic Acid Amplification test (NAAT)performed on the
[employer] ([employer] platform.
Diagnostic Testing:
Physical Exam
-
HEENT: Normocephalic and Anicteric
Cardiovascular: S1/S2 and Peripheral Edema (+1 lower extremity pitting edema)
Respiratory: Wheeze ([place] predominantly in left posterior hemithorax), Rales (Bilaterally), Rhonchi (Bilaterally) and Accessory Resp Muscle Use (Negative)
GI: Soft, Non Distended, Non Tender and Normal Bowel Sounds
Neurology: AO x 3
Skin: Warm and Dry
General: Respiratory Distress (Negative) and Comfortable
Assessment
-
Assessment: 72-year-old female tobacco smoker with a PMHx of CAD s/p coronary stents x 2, hyperlipidemia, history of metastatic breast cancer on chemotherapy with history of brain radiation (2022), GERD, ADHD and anemia who presents with abnormal
outpatient labs (worsening leukocytosis) with altered mental status and shortness of breath. Patient also has been having worsening lower extremity swelling and increased sputum production. Labs show elevated proBNP of 11,200 and leukocytosis to
29.6. Imaging concerning for acute congestive heart failure +/- pneumonia. She was started on antibiotics, diuresed and initially admitted to telemetry. Unfortunately her blood pressure dropped with her SBP in the 80s on 07/14/2023 requiring
vasopressors. Patient now transferred to the ICU for further care and critical care services consulted for additional management/recommendations.
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
radiation therapy and Arimidex, CAD s/p angioplasty with stent placement x 2 (2008), hyperlipidemia, history of adjustment disorder with depressed mood, osteoporosis, anemia due to antineoplastic chemotherapy
Impression:
#Shock due to CAP
#CAP
#Severe centrilobular emphysema with suspected COPD with acute exacerbation
#Tobacco use disorder
#Acute HFpEF exacerbation with acute pulmonary edema
#Acute respiratory failure with hypoxemia due to above
#Stage II diastolic dysfunction with valvular heart disease (mild�moderate MR; mild�moderate AAS)
#History of metastatic breast cancer (HR positive/HER2 negative) with bone, liver, dural brain metastasis, stage IV on salvage chemotherapy with Hx of brain radiation (2022)
#History of invasive ductal carcinoma s/p mastectomy (2008 � right breast), followed by chemotherapy/radiation (initially stage IIb)
#History of radiation fibrosis
#Chemotherapy-induced anemia
#CAD s/p stents
Plan:
- Continue broad-spectrum antibiotics with IV vanc/zosyn; start azithro given her suspected COPD (QTc: 505ms - re-check repeat EKG in AM)
- Follow-up infectious workup including blood cultures; will check sputum culture and urine Legionella/strep pneumonia; check MRSA swab and if negative then DC IV vanco
- Diurese as tolerated and maintain net negative fluid balance - cardiology on board and recs appreciated
- Low sodium/fluid restricted diet
- Mucolytics if needed
- Continue supplemental oxygen and titrate flow rate to maintain SpO2 >88%
- Would check walking pulse ox prior to discharge to assess O2 needs
- Considering patient is highly suspected to have COPD and has faint wheezing on my exam, I will start DuoNebs and prednisone taper
- She will need to see me in office for full PFTs +/- 6MWT and we can discuss starting maintenance inhaler at that time
- Maintain MAP>65
- Goal BG 140-180mg/dL
- Replete electrolytes with K>4, Mg>2
- PT/OT
- stress ulcer ppx: N/A
- DVT ppx: would change to LMWH given her metastatic breast cancer Hx
Critical care statement: A total of 40 minutes of critical care time was provided for this patient today. This includes management of unstable vital signs, evaluation of the patient at bedside, reviewing the patient's pertinent medical records
including radiographs, microbiology, laboratory evaluations, and discussion with primary team, consultants, pharmacy, nutrition, physical therapy, case management, charge nurse, critical care nursing, and respiratory therapy.
Data:
CXR 07-13-2023:
1. Hyperinflation, consistent with COPD.
2. Reticular interstitial thickening, suggestive of interstitial fibrosis or lymphangitic spread of tumor.
3. Nodular thickening of the left pleura at the left lung base. Differential diagnosis includes pneumonia, loculated pleural fluid and metastasis.
4. Small right pleural effusion is suspected.
CT Chest with IV contrast 07-13-2023:
IMPRESSION:
1). Moderate congestive heart failure
2). Extensive blastic osseous metastasis
3). Right mastectomy
TTE 07-14-2023:
Hyperdynamic left ventricular systolic function. LV ejection fraction is 70-
75%.
Stage II diastolic dysfunction suggestive of abnormal relaxation and increased
filling pressures.
Tiara EPIQ left ventricular global longitudinal strain is -20.1% (normal).
Mild/moderate mitral regurgitation.
Mild/moderate aortic stenosis (low flow, low gradient). Peak mean gradients are
12/5 mmHg, with calculated SATNAM 1.4cm2. SVI 29. Mild aortic regurgitation.
Severe tricuspid regurgitation. Mildly elevated PASP. Estimated pulmonary
artery pressure of 39 mmHg assuming a right atrial pressure of 8 mmHg.
No prior study available for comparison.
[2023-07-14] MEDS: LEVOPHED 250 IV (16:13)
--- NOTE | 2023-07-14 16:15 | PTCARENOTE ---
BP MAP's have been marginal 65-67- Levophed initiated via RSQ port at 4 mcg. No other changes. Family at the bedside and updated.
[2023-07-14 16:34] LABS: Urine Albumin Negative (Neg - Trace); Urine Bilirubin Negative (Negative); Urine Character Clear (Clear); Urine Color Yellow; Urine Glucose Negative (Negative); Urine Ketone Negative (Negative); Urine Leukocyte Negative (Negative); Urine Nitrite Negative (Negative); Urine Occult Blood 4+ (Negative); Urine Urobilinogen Negative (Neg - 1+)
[2023-07-14 16:41] LABS: Urine Squamous Cell 0-2 /LPF (Few)
[2023-07-14 16:44] LABS: INR 1.49; PT 17.9 Sec (11.4-14.6)
[2023-07-14 16:45] LABS: APTT 36.8 Sec (23.4-35.0)
[2023-07-14 16:46] LABS: Urine Triple Phosphate Crystal Present
[2023-07-14 16:47] LABS: Urine Bacteria Few (Negative); Urine Red Blood Cell 16-20 /HPF (0-2); Urine White Cell 0-2 /HPF (0-5)
[2023-07-14 16:48] LABS: Urine Uric Acid Crystals Present
--- NOTE | 2023-07-14 17:40 | PTCARENOTE ---
Bp improved on Levophed. Coags sent. UA sent as ordrered. Pt voiding yellow urine. Family in to visit. Forgetful at times but cooperative.
[2023-07-14] MEDS: LOW STRENGTH ASPIRIN 81 MG PO (17:58)
[2023-07-14] MEDS: DELTASONE 50 MG PO (18:48)
[2023-07-14] MEDS: DUONEB 3 ML INH (19:41)
[2023-07-14] MEDS: MUCINEX 600 MG PO (20:09)
[2023-07-14] MEDS: ZITHROMAX INFUSION 250 IV (20:14)
--- NOTE | 2023-07-14 20:57 | PTCARENOTE ---
Received pt. at 1900. Pt. awake and alert. Forgetful at times. Pt. attempt to get out of bed without assistance. Bed alarm on. Afebrile. Cardiac rhythm normal sinus. Levophed gtt infusing to maintain MAP >65. Pt. currently on 2L nasal cannula. Lungs
sound diminished. Low cholesterol diet ordered. Pt. with poor appetite. Incontinent of urine, purewick drainage device in place. Skin as documented. Discussed plan of care. Vital signs stable at this time.
[2023-07-15] VITALS (30 sets, daily range): BP systolic 82–113; BP diastolic 51–72; BMI 19.2
--- NOTE | 2023-07-15 | PTCARENOTE ---
Pt. assessment unchanged. Remains on Levophed gtt. Weaning gtt down as tolerated. Vital signs stable at this time.
[2023-07-15 03:29] LABS: Hematocrit 27.3 % (37.0-47.0); Hemoglobin 8.5 g/dL (12.0-16.0); Mean Corp Hgb Conc. 31.1 g/dL (33.0-37.0); Mean Corpuscular Hgb 27.3 pg (27.0-31.0); Mean Corpuscular Volume 87.8 fL (81.0-99.0); Nucleated Red Blood Cells % 0.9 %; Platelet Count 121 10^3/uL (130-400); Red Blood Cell Count 3.11 10^6/uL (4.20-5.40); Red Cell Dist. Width 25.5 % (11.5-14.5)
[2023-07-15 03:51] LABS: ALT (SGPT) 36 U/L (0-35); AST (SGOT) 44 U/L (14-36); Albumin 3.2 g/dl (3.5-5.0); Alkaline Phosphatase 183 U/L (38-126); Blood Urea Nitrogen 32 mg/dl (7-17); Carbon Dioxide 26 mmol/L (22-30); Chloride 100 mmol/L (98-107); Estimated Creatinine Clearance 40 ml/min; Glucose 159 mg/dl (70-99); Magnesium 2.2 mg/dl (1.6-2.3); Phosphorus 7.3 mg/dl (2.5-4.5); Potassium 3.4 mmol/L (3.5-5.1); Sodium 134 mmol/L (135-145); Total Bilirubin 1.2 mg/dl (0.2-1.3); Total Protein 5.8 g/dl (6.3-8.2); eGFR 59.12
--- NOTE | 2023-07-15 04:00 | PTCARENOTE ---
Levophed infusion off at 3:30am. Pt. blood pressure within normal limits. AM labs drawn. Vital signs stable at this time.
[2023-07-15 04:01] LABS: White Blood Cell Count 52.1 10^3/uL (4.8-10.8)
[2023-07-15] MEDS: ZOSYN 50 IV ×4 (05:01→23:10)
[2023-07-15] MEDS: KCL 270 MEQ IV (05:37)
[2023-07-15 06:06] LABS: Absolute Neutrophils -Man Diff 43.7 10^3/uL (1.4-6.5); Band Neutrophils 24 % (0-3); Segmented Neutrophils 60 % (42-75)
[2023-07-15 06:07] LABS: Lymphocytes 4 % (20-51); Metamyelocytes 6 % (-); Monocytes 2 % (2-9); Myelocytes 4 % (-)
[2023-07-15 06:10] LABS: Nucleated Red Blood Cells 4 (-)
[2023-07-15 06:15] LABS: Anisocytosis 2+; Macrocytosis 1+; Normal RBC Morphology No; Ovalocytes 1+; Platelets Checked Yes; Tear Drop Red Blood Cells Slight; Total Cells Counted 100
--- NOTE | 2023-07-15 07:12 | W.PN.HOSP.TC ---
Today's Communication/Plan
-
Stable for IMU
Assessment / Plan
Assessment / Plan
HPI: 72-year-old female past medical history of metastatic breast cancer on chemotherapy, CAD, COPD, hypercholesteremia, presenting to the emergency room because patient had lab work done at [facility] yesterday and family received a phone call stating
the lab work was abnormal and she needed to go to the hospital. Labs showed significant leukocytosis, elevated ANC, acute kidney injury and mild transaminitis. Over the past few days patient has gotten very weak and difficulty caring for herself
and performing activities of daily living. Patient was not even able to get up and walk to the bathroom on her own at this time.
Patient's last chemotherapy was on June 26 and she is scheduled for a new round this coming Monday. She has mild cough with green sputum and mild shortness of breath for the past few days. Patient has not had any fever, change in oral intake,
abdominal pain or nausea vomiting or diarrhea. He has also had increased lower extreme edema. No weight gain or weight loss.
Patient has been seeing palliative care within the past 2 days given her guarded prognosis. The metastatic breast cancer with metastasis to lining of brain, bone and back and liver but not to lung as per their knowledge. Patient smokes 1 cigarette
a day. No alcohol use.
#Hypotension
Unable to give IV fluids secondary to CHF
Status post Levophed
Continue midodrine 5 mg every 4 hours as needed
Stable for IMU
# Dyspnea multifactorial secondary to left lower lobe pneumonia/possible loculated pleural effusion as well as CHF exacerbation
Treat as below
#Left lower lobe pneumonia versus loculated pleural effusion
Patient has a leukocytosis with bandemia
COVID-negative, influenza negative
Chest CT shows CHF, osseous metastases, right mastectomy
Procalcitonin 0.64, MRSA neg
Senior Principal Software Engineer started prednisone, bronchodilators
Appreciate oncology input, rising white count due to patient receiving G-CSF 07/05/23 & steroids
Vancomycin discontinued, continue Zosyn and azithromycin
# Acute CHF exacerbation
#Bilateral lower extremity edema
Cardiac BNP of 11,000
Echo reviewed, cardiology following
Appreciate nematology teacher input, back on Lasix 40 mg IV twice daily
# Transaminitis likely secondary to hepatic venous congestion versus liver metastases
Monitor with diuresis
# Acute on chronic normocytic anemia likely chemotherapy related
Hemoglobin 8.4, was 7.4, was 8.0, down from baseline 10.4
Monitor, transfuse for hemoglobin less than 7.0
#History of metastatic breast cancer with metastases to lining of brain, bone, back and liver
Patient seeing palliative care outpatient, follows up with Dr. Lepe, currently getting outpatient chemo
Family again asking about prognosis, appreciate oncology input
Patient wishes to continue all treatment possible, and remain full code
Continue oxycodone and Zofran
Coronary artery disease with history of stents
COPD
Hypercholesterolemia
Dementia/depression
-Continue memantine
-Continue Zoloft
DVT prophylaxis�subcu Lovenox
Full code as confirmed by patient
Updated family at bedside 07/13
Total time spent to see the patient on the floor, examine the patient, review data and lab results, discuss treatment plan with patient, nursing staff around 54 minutes.
Physical Exam
General: Appears chronically ill, no acute distress
HEENT: Normocephalic, Atraumatic, EOMI, MMM
Respiratory: Bibasilar crackles
Cardiac: Normal S1/S2, Regular Rate and Rhythm
Chest wall: Port noted on right chest wall
GI: Soft, Nontender, Nondistended, Normal Bowel Sounds
Extremities: No Clubbing, Cyanosis
Bilateral lower extremity edema noted
Neuro: Nonfocal/Grossly Intact
Psych: Calm, Cooperative
Anticipated Discharge: > 48 hours
Subjective/Interval History
-
Date of Service: July 15, 2023
Patient states she is breathing well. No shortness of breath, no chest pain. No fever, no vomiting. She does have a cough.
Objective Data
-
Labs:
Laboratory Results
07/15/23
03:17
WBC 52.1 H*
Hgb 8.5 L
Hct 27.3 L
Plt Count 121 L
Sodium 134 L
Potassium 3.4 L
Chloride 100
Carbon Dioxide 26
BUN 32 H
Creatinine 1.0
Glucose 159 H
Calcium 8.0 L
Total Bilirubin 1.2
AST 44 H
ALT 36 H
Alkaline Phosphatase 183 H
Vital Signs:
Vital Signs
Temp Pulse Resp BP Pulse Ox
98.7 F 62 9 86/57 97
07/15/23 04:00 07/15/23 06:30 07/15/23 06:30 07/15/23 06:00 07/15/23 06:30
I&O
07/14/23 07/15/23 07/16/23
06:59 06:59 06:59
Intake Total 830 / 830 570.0 / 570.0
Output Total 800 / 800
Balance 830 / 830 -230.0 / -230.0
[2023-07-15] MEDS: DUONEB 3 ML INH ×3 (07:28→15:30)
--- NOTE | 2023-07-15 09:00 | W.PN.INTV ---
Today's Communication / Plan
Recommendations
Abx
DuoNebs
IS
PT/OT
Prednisone taper
Diuresis
Trend BNP
Patient is stable for TRX out of ICU to IMU. Pulmonary service will continue to follow along.
Assessment
-
Assessment: 72-year-old female tobacco smoker with a PMHx of CAD s/p coronary stents x 2, hyperlipidemia, history of metastatic breast cancer on chemotherapy with history of brain radiation (2022), GERD, ADHD and anemia who presents with abnormal
outpatient labs (worsening leukocytosis) with altered mental status and shortness of breath. Patient also has been having worsening lower extremity swelling and increased sputum production. Labs show elevated proBNP of 11,200 and leukocytosis to
29.6. Imaging concerning for acute congestive heart failure +/- pneumonia. She was started on antibiotics, diuresed and initially admitted to telemetry. Unfortunately her blood pressure dropped with her SBP in the 80s on 07/14/2023 requiring
vasopressors. Patient now transferred to the ICU for further care and critical care services consulted for additional management/recommendations.
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
radiation therapy and Arimidex, CAD s/p angioplasty with stent placement x 2 (2008), hyperlipidemia, history of adjustment disorder with depressed mood, osteoporosis, anemia due to antineoplastic chemotherapy
Impression:
#Shock due to CAP - shock state resolved
#CAP
#Severe centrilobular emphysema with suspected COPD with acute exacerbation
#Tobacco use disorder
#Acute HFpEF exacerbation with acute pulmonary edema - improving
#Acute respiratory failure with hypoxemia due to above - improved
#Stage II diastolic dysfunction with valvular heart disease (mild�moderate MR; mild�moderate AAS)
#History of metastatic breast cancer (HR positive/HER2 negative) with bone, liver, dural brain metastasis, stage IV on salvage chemotherapy with Hx of brain radiation (2022)
#History of invasive ductal carcinoma s/p mastectomy (2009 � right breast), followed by chemotherapy/radiation (initially stage IIb)
#History of radiation fibrosis
#Chemotherapy-induced anemia
#CAD s/p stents
Plan:
- Continue broad-spectrum antibiotics with IV vanc/zosyn; continue azithro given her suspected COPD (QTc: 505ms - re-check repeat EKG this AM shows worsening QTc now at 531ms --> repeat EKG again tomorrow AM)
- Follow-up infectious workup (blood cultures X2); will check sputum culture and urine Legionella/strep pneumonia; MRSA swab negative, so IV vanco DC'd
- Diurese as tolerated and maintain net negative fluid balance - cardiology on board and recs appreciated --> given slightly worsened coarsening of bronchovascular markings on today's CXR, I will raise lasix to 40mg IV BID until tomorrow.
- Low sodium/fluid restricted diet
- Mucolytics if needed
- Continue supplemental oxygen and titrate flow rate to maintain SpO2 >88%
- Would check walking pulse ox prior to discharge to assess O2 needs
- Considering patient is highly suspected to have COPD and has faint wheezing on my exam, I will started DuoNebs and prednisone taper
- She will need to see me in office for full PFTs +/- 6MWT and we can discuss starting maintenance inhaler at that time
- Nicotine patch
- Maintain MAP>65
- Goal BG 140-180mg/dL
- Replete electrolytes with K>4, Mg>2
- PT/OT
- stress ulcer ppx: N/A
- DVT ppx: LMWH
Dispo: Patient is stable for TRX out of ICU to IMU. Pulmonary service will continue to follow along.
Total time spent today was 55 minutes for this encounter. Time includes reviewing laboratory test/imaging results, reviewing pertinent medical records, obtaining and reviewing medical history, performing an appropriate exam, ordering medications,
tests and procedures. Time also includes documentation of this encounter, coordinating patient care and communicating with other healthcare professionals. Total time does not include separately billed tests performed on this date of service.
Data:
CXR 07-13-2023:
1. Hyperinflation, consistent with COPD.
2. Reticular interstitial thickening, suggestive of interstitial fibrosis or lymphangitic spread of tumor.
3. Nodular thickening of the left pleura at the left lung base. Differential diagnosis includes pneumonia, loculated pleural fluid and metastasis.
4. Small right pleural effusion is suspected.
CXR 07-15-2023:
Stable diffuse reticular interstitial thickening throughout the right and left lungs. No focal interstitial or airspace opacity to indicate superimposed pneumonia. The cardiomediastinal margins are stable. Stable right [id number]-x-Htlq catheter, distal
tip at the inferior margin of the right atrium. No pneumothorax. As stable mild localized pleural thickening involving the lateral left mid to lower hemithorax.
CT Chest with IV contrast 07-13-2023:
IMPRESSION:
1). Moderate congestive heart failure
2). Extensive blastic osseous metastasis
3). Right mastectomy
TTE 07-14-2023:
Hyperdynamic left ventricular systolic function. LV ejection fraction is 70-
75%.
Stage II diastolic dysfunction suggestive of abnormal relaxation and increased
filling pressures.
Tiara EPIQ left ventricular global longitudinal strain is -20.1% (normal).
Mild/moderate mitral regurgitation.
Mild/moderate aortic stenosis (low flow, low gradient). Peak mean gradients are
12/5 mmHg, with calculated SATNAM 1.4cm2. SVI 29. Mild aortic regurgitation.
Severe tricuspid regurgitation. Mildly elevated PASP. Estimated pulmonary
artery pressure of 39 mmHg assuming a right atrial pressure of 8 mmHg.
No prior study available for comparison.
Subjective Dataa
Subjective Data
Date of Service:
Date of Service: July 15, 2023
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
Subjective:
Patient seen this morning. She feels much, much better. Less short of breath and less fatigue. She is on room air breathing comfortably. Saturating 96%. BP 98/62 and heart rate 90. She has been off of Levophed since around 3:30 AM overnight.
Denies headache, chest pain, abdominal pain, fevers or chills.
Review of Systems
General: Other (12 point ROS performed and is negative unless mentioned above.)
Objective Data
Data Reviewed
Vital Signs / I&O / Oxygen:
Vital Signs
Temp Pulse Resp BP Pulse Ox
98.7 F 89 16 93/64 97
07/15/23 04:00 07/15/23 11:39 07/15/23 11:24 07/15/23 11:39 07/15/23 11:24
Intake and Output
07/14/23 07/15/23 07/16/23
06:59 06:59 06:59
Intake Total 830 / 830 570.0 / 637.5 682.5 / 682.5
Output Total 800 / 800
Balance 830 / 830 -230.0 / -162.5 682.5 / 682.5
SaO2 97
Nasal Cannula flow liters per 4
minute
Physical Exam
General: Respiratory Distress (negative) and Comfortable
HEENT: Normocephalic and Anicteric
Cardiovascular: S1-S2 and Peripheral Edema (trace LE edema)
Respiratory: Wheeze (negative), Crackles (bibasilar), Rhonchi (bilaterally) and Non-Labored Respirations
GI: Soft, Non Distended and Non Tender
Neurology: AO x 3
Skin: Warm and Dry
Labs/Micro/Reports
Lab Data
07/15/23 03:17
Laboratory Results
07/14/23
16:16
PT 17.9 H
INR 1.49
APTT 36.8 H
Microbiology
07/13/23 15:15 Blood/Venous Blood Culture - Preliminary
No Growth in 24 hours- Final report to follow
07/13/23 15:15 Blood/Venous Blood Culture - Preliminary
No Growth in 24 hours- Final report to follow
07/14/23 09:19 Nose Nasal Screen MRSA (PCR) - Final
MRSA not detected - performed by PCR methodology.
07/13/23 15:25 Nasal Swab Influenza Types A & B (SABRA) - Final
Negative for Influenza A & B, NAAT
Negative results must be combined with clinical observations
and patient history.
Nucleic Acid Amplification test (NAAT)performed on the
[employer] platform.
[2023-07-15] MEDS: LOW STRENGTH ASPIRIN 81 MG PO (09:13)
[2023-07-15] MEDS: DELTASONE 50 MG PO (09:13)
[2023-07-15] MEDS: HEPARIN 5000 UNITS SC (09:13)
[2023-07-15] MEDS: ZITHROMAX 250 MG PO (09:14)
[2023-07-15] MEDS: MUCINEX 600 MG PO ×2 (09:14→20:22)
[2023-07-15] MEDS: ZOLOFT 25 MG PO (09:14)
[2023-07-15] MEDS: SENOKOT-S 2 TABLET PO ×2 (09:14→20:22)
[2023-07-15] MEDS: OXYCONTIN (CONTROLLED RELEASE) 10 MG PO ×2 (09:14→20:23)
[2023-07-15] MEDS: NAMENDA 10 MG PO ×2 (09:15→20:23)
[2023-07-15] MEDS: MIRALAX 17 GRAMS PO ×2 (09:15→20:23)
--- NOTE | 2023-07-15 09:41 | CON.ONC ---
Impression
Impression
metastatic breast cancer, on salvage chemotherapy with Halaven; mets to liver, brain, bones, nodes
leukocytosis, from Rolvedon (GCSF, 07/05/23, plus steroids)
HFPEF
weakness
Plan
Plan
No obvious infection based on CT scan, cultures; afebrile. Leukocytosis is from G-CSF (Rolvedon tends to cause much higher WBC counts than Neulasta) and steroids. Would consider backing off abx.
Diuresis per cardiology.
Discussed goals of care regarding her breast cancer. She wishes to continue active chemotherapy, has had good quality of life despite her cancer diagnosis/treatment, and wishes to continue the same. She wishes to remain FULL CODE.
She's scheduled to see Dr. Lepe on 07/17/23, will likely need to be postponed.
Will follow along.
Patient History
History of Present Illness
This 72 yo F, patient of Dr. Lepe, with metastatic breast cancer, metastatic to nodes, bones, liver, and brain, currently on salvage chemotherapy with Halaven + GCSF (last on 07/03 with GCSF on 07/04), who presented to the ER with increasing weakness
and outpatient labs noted for increasing LFTs and creatinine. She reported a mild cough, productive of green sputum, and mild SOB. CXR suggested a left pneumonia, but CT chest showed parenchymal scarring, similar to PET from 05/08/23 and findings to
suggest moderate CHF.
She was given Lasix, then dropped her BP, requiring midodrine and then levophed. She was started on Zosyn and azithromycin for possible infection. She was started on Prednisone 50mg daily for COPD component.
Echo showed hyperdynamic LVSF, 70-75%, with mild to moderate MR and mid to mod . Mild AR, severe TR, mildly elevated PASP.
Cultures negative thus far.
CBC noted for WBC of 52, hgb 8.5, platelet 121. no deficiency of iron, B12, folate. Creatinine has normalized, LFTs stable/slightly improved.
She's feeling a bit better this am, sitting up in a chair eating breakfast. Appetite is fair. She's upset that 'people keep telling me I'm dying.'
Past-Medical/Surgical History
PMH/PSH - As above, also anemia, mastectomy, osteoporosis, CAD, tobacco abuse
SH - smoker, 1 cig/day, social etoh
FH - N/C
Patient Medication
�Medication �Instructions �Recorded �Confirmed �Last Taken �Type
memantine 10 mg tablet 10 mg PO BID Mental Health/Anxiety 08/09/22 07/13/23 07/13/23 History
oxycodone myristate 9 mg capsule 9 mg PO BID Pain 08/09/22 07/13/23 07/13/23 History
sprinkle extended release 12
hr(DON'T CRUSH) (Xtampza ER)
ondansetron HCl 4 mg tablet 4 mg PO Q8HPRN PRN nausea 06/14/23 07/13/23 06/09/23 History
sertraline 25 mg tablet (Zoloft) 25 mg PO DAILY Mental 06/14/23 07/13/23 07/13/23 History
Health/Anxiety
acetaminophen 325 mg tablet 650 mg PO Q4HPRN PRN mild pain 07/13/23 07/13/23 Unknown History
(Tylenol)
docusate sodium 100 mg capsule 100 mg PO HS STOOL SOFTENER 07/13/23 07/13/23 Unknown History
(Colace)
xylitol 500 mg mucosal adhesive 1 mg mucous membrane Q2HPRN PRN 07/13/23 07/13/23 Unknown History
tablet dry mouth
Active Medications
Generic Name Dose Route Start Last Admin
Trade Name Freq PRN Reason Stop Dose Admin
Acetaminophen 650 mg 07/13/23 19:38
Acetaminophen 325 Mg Tablet PO 08/10/23 19:37
Q4HPRN PRN
mild pain/GILL/temp> 100.4F
Albuterol/Ipratropium 3 ml 07/14/23 20:00 07/15/23 07:28
Ipratropium 0.5/Albuterol 3 Mg (3 Ml Ampul) INH 07/15/23 19:59 3 ml
R QID LIDIA Administration
Protocol
Albuterol/Ipratropium 3 ml 07/16/23 08:00
Ipratropium 0.5/Albuterol 3 Mg (3 Ml Ampul) INH
R TID LIDIA
Protocol
Aspirin 81 mg 07/14/23 17:00 07/15/23 09:13
Aspirin 81 Mg Chewable Tablet PO 08/11/23 16:59 81 mg
DAILY LIDIA Administration
Azithromycin 250 mg 07/15/23 08:00 07/15/23 09:14
Azithromycin 250 Mg Tablet PO 07/18/23 08:01 250 mg
DAILY LIDIA Administration
Guaifenesin 600 mg 07/14/23 20:00 07/15/23 09:14
Guaifenesin 600 Mg Extended Release Tablet PO 07/16/23 20:01 600 mg
Q12 LIDIA Administration
Heparin Sodium 5,000 units 07/13/23 20:00 07/15/23 09:13
Heparin 5,000 Units/Ml 1 Ml Vial SC 08/10/23 19:59 5,000 units
Q12 LIDIA Administration
Heparin Sodium (Porcine) 500 unit 07/13/23 23:31 07/14/23 14:34
Heparin Flush Pf (100 Unit/Ml) 5 Ml Syringe IV 08/10/23 23:30 500 unit
PRN PRN Administration
SQ PORT
Piperacillin Sod/Tazobactam Sod 3.375 gram in 50 mls @ 100 mls/hr 07/14/23 00:00 07/15/23 05:01
Zosyn IV 50 mls
Q6H LIDIA Administration
Norepinephrine Bitartrate 4 mg in 250 mls @ 0 mls/hr 07/14/23 14:52 07/14/23 16:13
Levophed IV 250 mls
PER PROTOCOL LIDIA Administration
Protocol
Per Protocol
Memantine 10 mg 07/13/23 20:00 07/15/23 09:15
Memantine 10 Mg Tablet PO 08/10/23 19:59 10 mg
BID LIDIA Administration
Midodrine 5 mg 07/14/23 12:35 07/14/23 14:07
Midodrine 5 Mg Tablet PO 08/11/23 12:34 5 mg
Q4HPRN PRN Administration
SBP <90
Ondansetron HCl 4 mg 07/13/23 19:38
Ondansetron 4 Mg Tablet PO 08/10/23 19:37
Q8HPRN PRN
nausea
Oxycodone HCl 10 mg 07/13/23 22:00 07/15/23 09:14
Oxycontin 10 Mg Controlled Release Tablet PO 08/10/23 21:59 10 mg
BID LIDIA Administration
Polyethylene Glycol 17 grams 07/14/23 11:00 07/15/23 09:15
Polyethylene Glycol Powder 17 Grams Packet PO 08/11/23 10:59 17 grams
BID LIDIA Administration
Prednisone 50 mg 07/15/23 08:00 07/15/23 09:13
Prednisone 10 Mg Tablet PO 07/24/23 07:59 50 mg
DAILY LIDIA Administration
Taper
Saliva Substitute 0 spray 07/14/23 09:10
Saliva Substitute ([place]) Mouth [place] PO 08/11/23 09:09
Q2HPRN PRN
dry mouth
Senna/Docusate Sodium 2 tablet 07/14/23 11:00 07/15/23 09:14
Docusate W/Senna (Diana-Colace) Tablet PO 08/11/23 10:59 2 tablet
BID LIDIA Administration
Sertraline HCl 25 mg 07/14/23 08:00 07/15/23 09:14
Sertraline 25 Mg Tablet PO 08/11/23 07:59 25 mg
DAILY LIDIA Administration
Sodium Chloride 0 flush 07/13/23 22:00
Sodium Chloride 0.9% (Flush) Syringe IV 08/10/23 21:59
PER PROTOCOL LIDIA
Review of Systems
-
History Source: Patient
All Other Systems: Not reviewed unless documented
Physical Exam
-
General: No Apparent Distress, Comfortable and Conversant
HEENT: Moist Mucous Membranes; Negative Jaundice
Cardiology: Normal Sinus Rhythm
Pulmonary: Rales (at bases)
GI: Soft
Extremities: Edema (trace ankle)
Neurology: Non Focal, No Lateralizing Symptoms and No Word Finding Difficulty
Skin: Warm and Dry
Psych: Calm and Intact Judgement/Insight
Labs
Lab Results
WBC 52.1 10^3/uL (4.8-10.8) H* 07/15/23 03:17
RBC 3.11 10^6/uL (4.20-5.40) L 07/15/23 03:17
Hgb 8.5 g/dL (12.0-16.0) L 07/15/23 03:17
Hct 27.3 % (37.0-47.0) L 07/15/23 03:17
MCV 87.8 fL (81.0-99.0) 07/15/23 03:17
MCH 27.3 pg (27.0-31.0) 07/15/23 03:17
MCHC 31.1 g/dL (33.0-37.0) L 07/15/23 03:17
RDW 25.5 % (11.5-14.5) H 07/15/23 03:17
Plt Count 121 10^3/uL (130-400) L 07/15/23 03:17
MPV Not Reportable 07/15/23 03:17
Creatinine 1.0 mg/dL (0.6-1.0) 07/15/23 03:17
Vital Signs
Vital Signs
Temp Pulse Resp BP Pulse Ox
98.7 F 62 12 86/57 95
07/15/23 04:00 07/15/23 07:30 07/15/23 07:30 07/15/23 06:00 07/15/23 07:30
--- NOTE | 2023-07-15 10:05 | CM ---
CM following re: discharge planning.
Reviewed pt's chart, met with pt.
Pt is a 72 year old female, admitted with primary dx of Shock due to CAP.
Pt reports she lives alone in an apartment, 1st floor, has 2 supportive daughters, they live nearby and help as needed. Pt described herself as independent in all areas [employer]. No DME, VN or SNF history. Pt expressed her awareness of her CA diagnosis,
not aware of prognosis and stated: 'i do not want to '. Emotional support offered and provided. Pt reports she is getting chemotherapy treatment at [facility] and her next appointment is Monday07/17/23.
PCP: Mahogany Freitas
Pharmacy: [facility].
D/C plan: per pt's request, home with continuity of chemotherapy treatment at [facility].
CM will follow with discharge plan updates as hospitalization progresses
--- NOTE | 2023-07-15 11:00 | PTCARENOTE ---
PT OOB for 2 hours, assisted back to bed with slightly unstable gait, family at bedside, updated
[2023-07-15] MEDS: LASIX 40 MG IV ×2 (11:39→17:25)
--- NOTE | 2023-07-15 12:00 | PTCARENOTE ---
Bed alarm maintained, PT assisted to bathroom, family remains at bedside, all questions and concerns answered, PT's assessment remains unchanged
--- NOTE | 2023-07-15 12:22 | W.PN.CD ---
Today's Communication / Plan
-
Continue IV BID Lasix
Hard to know if this is really heart failure
Impression / Plan
-
Background: 72 yo female with metastatic breast cancer, on salvage therapy with Halaven, CAD with stenting 2008, has been in ICU for treatment of ? septic shock in setting of ? suspected PNA. She is on antibiotics and was on Levophed. She reports
some SOB, and also edema
Suspected HFpEF
- Will monitor response to IV BID Furosemide
- If we confirm HFpEF then once decongested we will add GDMT (SGLT inhibitor and MRA (Aldactone)
Low BP => improved
- off levo
- Midodrine on 07/14/2023 but none today (07/15/2023)
Metastatic breast CA, continuing on active treatment and full code
CAD, remote PR, prior PCI/sent
Anemia, Hgb 8.5
Subjective:
Feels a bit better
Echo 07/14/2023: LVEF 70-75%, stage II diastolic dysfxn, mild/mod MR/. Severe TR, est PASP39 mmHg
Physical Exam
Vital Signs/Labs
Vital Signs
Temp Pulse Resp BP Pulse Ox
98.7 F 89 16 93/64 97
07/15/23 04:00 07/15/23 11:39 07/15/23 11:24 07/15/23 11:39 07/15/23 11:24
07/14/23 07/15/23 07/16/23
06:59 06:59 06:59
Actual Weight 51.029 kg 50.8 kg
07/15/23 03:17
PT 17.9 Sec (11.4-14.6) H 07/14/23 16:16
INR 1.49 07/14/23 16:16
APTT 36.8 Sec (23.4-35.0) H 07/14/23 16:16
Magnesium 2.2 mg/dl (1.6-2.3) 07/15/23 03:17
07/13/23
14:43
Aer-B-Zzitrzymqsu Pept [id number]
Physical Exam
Constitutional: No acute distress
EENT: Anicteric
Cardiovascular: Rhythm & rate is regular, Pedal edema present, Systolic murmur present and S1S2 is normal
Respiratory: Crackles Present (diffuse)
GI: Soft, Distention absent and Non tender
Neuro/Psych: AO x 3
Data Reviewed
-
Date of Service: July 15, 2023
[2023-07-15 15:59] LABS: Blood Urea Nitrogen 32 mg/dl (7-17); Carbon Dioxide 24 mmol/L (22-30); Chloride 99 mmol/L (98-107); Estimated Creatinine Clearance 36 ml/min; Glucose 212 mg/dl (70-99); Magnesium 2.1 mg/dl (1.6-2.3); Potassium 3.6 mmol/L (3.5-5.1); Sodium 134 mmol/L (135-145); eGFR 52.73
[2023-07-15] MEDS: LOVENOX 40 MG SC (17:26)
--- NOTE | 2023-07-15 18:18 | PTCARENOTE ---
PT being transferred to room 3353, Report given to Danial MCCOY on IMU, PT and family made aware of the transfer, PT's belongings packed up
[2023-07-16] VITALS (61 sets, daily range): BP systolic 81–121; BP diastolic 53–84; PULSE 88–98; O2SAT 92; BMI 19.0
[2023-07-16] MEDS: TYLENOL 650 MG PO (01:41)
[2023-07-16 04:59] LABS: Hematocrit 23.4 % (37.0-47.0); Hemoglobin 7.2 g/dL (12.0-16.0); Mean Corp Hgb Conc. 30.8 g/dL (33.0-37.0); Mean Corpuscular Hgb 27.1 pg (27.0-31.0); Platelet Count 82 10^3/uL (130-400); Red Blood Cell Count 2.66 10^6/uL (4.20-5.40); Red Cell Dist. Width 25.5 % (11.5-14.5); White Blood Cell Count 33.2 10^3/uL (4.8-10.8)
[2023-07-16] MEDS: ZOSYN 50 IV (05:08)
[2023-07-16] MEDS: ProAmatine 5 MG PO ×2 (05:11→09:04)
[2023-07-16 05:29] LABS: ALT (SGPT) 29 U/L (0-35); AST (SGOT) 36 U/L (14-36); Alkaline Phosphatase 164 U/L (38-126); Blood Urea Nitrogen 32 mg/dl (7-17); Calcium 7.8 mg/dl (8.4-10.2); Carbon Dioxide 29 mmol/L (22-30); Chloride 99 mmol/L (98-107); Estimated Creatinine Clearance 36 ml/min; Glucose 100 mg/dl (70-99); Magnesium 2.1 mg/dl (1.6-2.3); Phosphorus 5.5 mg/dl (2.5-4.5); Potassium 3.2 mmol/L (3.5-5.1); Sodium 134 mmol/L (135-145); Total Bilirubin 0.8 mg/dl (0.2-1.3); Total Protein 5.5 g/dl (6.3-8.2); eGFR 52.73
--- NOTE | 2023-07-16 05:30 | PTCARENOTE ---
Pt awake intermittently t/o the night. Pt reports difficulty sleeping. Pt ambulatory to bathroom with walker when needed. HR in the 70's in NSR on the monitor. POX 96-100% on 4 LO2 NC. Lungs dec with scattered crackles. BAILEY. + bowel. Palpable
peripheral pulses present. Right SQ port in place. Pt forgetful at times. Bed alarm in place for pt safety. Pt complaining of back pain, PRN Tylenol administered as ordered. BP <90 this am, Midodrine administered as ordered. Call domingo in reach. Will
continue to monitor.
[2023-07-16 05:34] LABS: NT-proBNP 14500 pg/ml
[2023-07-16] MEDS: KCL 40 MEQ PO ×4 (05:51→20:45)
[2023-07-16] MEDS: DUONEB 3 ML INH ×3 (07:29→19:43)
--- NOTE | 2023-07-16 08:07 | W.PN.HOSP.TC ---
Today's Communication/Plan
-
see bold
Assessment / Plan
Assessment / Plan
HPI: 72-year-old female past medical history of metastatic breast cancer on chemotherapy, CAD, COPD, hypercholesteremia, presenting to the emergency room because patient had lab work done at [facility] yesterday and family received a phone call stating
the lab work was abnormal and she needed to go to the hospital. Labs showed significant leukocytosis, elevated ANC, acute kidney injury and mild transaminitis. Over the past few days patient has gotten very weak and difficulty caring for herself
and performing activities of daily living. Patient was not even able to get up and walk to the bathroom on her own at this time.
Patient's last chemotherapy was on June 26 and she is scheduled for a new round this coming Monday. She has mild cough with green sputum and mild shortness of breath for the past few days. Patient has not had any fever, change in oral intake,
abdominal pain or nausea vomiting or diarrhea. He has also had increased lower extreme edema. No weight gain or weight loss.
Patient has been seeing palliative care within the past 2 days given her guarded prognosis. The metastatic breast cancer with metastasis to lining of brain, bone and back and liver but not to lung as per their knowledge. Patient smokes 1 cigarette
a day. No alcohol use.
#Hypotension
Unable to give IV fluids secondary to CHF
Status post Levophed
Continue midodrine 5 mg every 4 hours as needed
# Acute heart failure with a preserved ejection fraction
#Bilateral lower extremity edema
Echo with an EF 70-75%, stage II diastolic dysfunction, mild pulmonary hypertension
Cardiac BNP of 11,000
Echo reviewed, cardiology following
Appreciate vocational rehabilitation specialist input, back on Lasix 40 mg IV twice daily
# Dyspnea multifactorial secondary to left lower lobe pneumonia/possible loculated pleural effusion as well as CHF exacerbation
Treat as below
#Left lower lobe pneumonia ruled out
Patient has a leukocytosis with bandemia
COVID-negative, influenza negative
Chest CT shows CHF, osseous metastases, right mastectomy
Procalcitonin 0.64, MRSA neg
Pulm started prednisone, bronchodilators
Appreciate oncology input, rising white count due to patient receiving G-CSF 07/05/23 & steroids
Vancomycin discontinued, stop Zosyn, continue azithromycin for anti-inflammatory effects
# Transaminitis likely secondary to hepatic venous congestion versus liver metastases
Monitor with diuresis
# Acute on chronic normocytic anemia likely chemotherapy related
Hemoglobin 7.2, was 8.4, was 7.4, was 8.0, down from baseline 10.4
Monitor, transfuse for hemoglobin less than 7.0
#History of metastatic breast cancer with metastases to lining of brain, bone, back and liver
Patient seeing palliative care outpatient, follows up with Dr. Lepe, currently getting outpatient chemo
Family again asking about prognosis, appreciate oncology input
Patient wishes to continue all treatment possible, and remain full code
Continue oxycodone and Zofran
Coronary artery disease with history of stents
COPD
Hypercholesterolemia
Dementia/depression
-Continue memantine
-Continue Zoloft
DVT prophylaxis�subcu Lovenox
Full code as confirmed by patient
Updated family at bedside 07/13
Total time spent to see the patient on the floor, examine the patient, review data and lab results, discuss treatment plan with patient, nursing staff around 51 minutes.
Physical Exam
General: Appears chronically ill, no acute distress
HEENT: Normocephalic, Atraumatic, EOMI, MMM
Respiratory: Bibasilar crackles
Cardiac: Normal S1/S2, Regular Rate and Rhythm
Chest wall: Port noted on right chest wall
GI: Soft, Nontender, Nondistended, Normal Bowel Sounds
Extremities: No Clubbing, Cyanosis
Bilateral lower extremity edema noted
Neuro: Nonfocal/Grossly Intact
Psych: Calm, Cooperative
Anticipated Discharge: 24 - 48 hours
Subjective/Interval History
-
Date of Service: July 16, 2023
Patient denies shortness of breath, denies chest pain. No lightheadedness, no nausea, no vomiting. Her cough continues to improve.
Objective Data
-
Labs:
Laboratory Results
07/16/23
04:34
WBC 33.2 H
Hgb 7.2 L
Hct 23.4 L
Plt Count 82 L D
Sodium 134 L
Potassium 3.2 L
Chloride 99
Carbon Dioxide 29
BUN 32 H
Creatinine 1.1 H
Glucose 100 H
Calcium 7.8 L
Total Bilirubin 0.8
AST 36
ALT 29
Alkaline Phosphatase 164 H
Vital Signs:
Vital Signs
Temp Pulse Resp BP Pulse Ox
98.0 F 82 14 81/54 99
07/16/23 03:13 07/16/23 07:34 07/16/23 07:34 07/16/23 05:11 07/16/23 07:34
I&O
07/15/23 07/16/23 07/17/23
06:59 06:59 06:59
Intake Total 570.0 / 637.5 1022.5 / 1022.5
Output Total 800 / 800
Balance -230.0 / -162.5 1022.5 / 1022.5
[2023-07-16] MEDS: ZITHROMAX 250 MG PO (09:00)
[2023-07-16] MEDS: OXYCONTIN (CONTROLLED RELEASE) 10 MG PO ×2 (09:00→20:47)
[2023-07-16] MEDS: NAMENDA 10 MG PO ×2 (09:00→20:47)
[2023-07-16] MEDS: ZOLOFT 25 MG PO (09:01)
[2023-07-16] MEDS: LOW STRENGTH ASPIRIN 81 MG PO (09:01)
[2023-07-16] MEDS: DELTASONE 40 MG PO (09:01)
[2023-07-16] MEDS: SENOKOT-S 2 TABLET PO (09:01)
[2023-07-16] MEDS: MIRALAX 17 GRAMS PO (09:01)
[2023-07-16] MEDS: MUCINEX 600 MG PO ×2 (09:01→20:47)
--- NOTE | 2023-07-16 09:31 | W.PN.PUL3 ---
Today's Communication / Plan
-
Abx
DuoNebs
IS
PT/OT
Prednisone taper
Diuresis
Trend BNP
I will arrange for pulmonary outpatient follow-up. Pulmonary service will continue to briefly follow along.
Assessment
-
Assessment: 72-year-old female tobacco smoker with a PMHx of CAD s/p coronary stents x 2, hyperlipidemia, history of metastatic breast cancer on chemotherapy with history of brain radiation (2022), GERD, ADHD and anemia who presents with abnormal
outpatient labs (worsening leukocytosis) with altered mental status and shortness of breath. Patient also has been having worsening lower extremity swelling and increased sputum production. Labs show elevated proBNP of 11,200 and leukocytosis to
29.6. Imaging concerning for acute congestive heart failure +/- pneumonia. She was started on antibiotics, diuresed and initially admitted to telemetry. Unfortunately her blood pressure dropped with her SBP in the 80s on 07/14/2023 requiring
vasopressors. Patient now transferred to the ICU for further care and critical care services consulted for additional management/recommendations.
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
radiation therapy and Arimidex, CAD s/p angioplasty with stent placement x 2 (2008), hyperlipidemia, history of adjustment disorder with depressed mood, osteoporosis, anemia due to antineoplastic chemotherapy
Impression:
#Shock due to CAP - shock state resolved
#CAP
#Severe centrilobular emphysema with suspected COPD with acute exacerbation
#Tobacco use disorder
#Acute HFpEF exacerbation with acute pulmonary edema - improving
#Acute respiratory failure with hypoxemia due to above - improved
#Stage II diastolic dysfunction with valvular heart disease (mild�moderate MR; mild�moderate AAS)
#History of metastatic breast cancer (HR positive/HER2 negative) with bone, liver, dural brain metastasis, stage IV on salvage chemotherapy with Hx of brain radiation (2022)
#History of invasive ductal carcinoma s/p mastectomy (2009 � right breast), followed by chemotherapy/radiation (initially stage IIb)
#History of radiation fibrosis
#Chemotherapy-induced anemia
#CAD s/p stents
Plan:
- Continue broad-spectrum antibiotics with IV vanc/zosyn; continue azithro given her suspected COPD (QTc: 505ms - re-check repeat EKG this AM shows worsening QTc now at 531ms --> repeat EKG again today)
- Follow-up infectious workup (blood cultures X2); awaiting sputum culture and urine Legionella/strep pneumonia; MRSA swab negative, so IV vanco DC'd
- Diurese as tolerated and maintain net negative fluid balance - cardiology on board and recs appreciated --> given slightly worsened coarsening of bronchovascular markings on today's CXR, I raised lasix to 40mg IV BID --> last day of IV lasix today
- Low sodium/fluid restricted diet
- Mucolytics if needed
- Continue supplemental oxygen and titrate flow rate to maintain SpO2 >88%
- Would check walking pulse ox prior to discharge to assess O2 needs
- Considering patient is highly suspected to have COPD and had faint wheezing on my exam, I started DuoNebs and prednisone taper
- She will need to see me in office for full PFTs +/- 6MWT and we can discuss starting maintenance inhaler at that time
- Nicotine patch
- Maintain MAP>65
- Goal BG 140-180mg/dL
- Replete electrolytes with K>4, Mg>2
- PT/OT
- stress ulcer ppx: N/A
- DVT ppx: LMWH
Pulmonary will continue to follow along.
Total time spent today was 35 minutes for this encounter. Time includes reviewing laboratory test/imaging results, reviewing pertinent medical records, obtaining and reviewing medical history, performing an appropriate exam, ordering medications,
tests and procedures. Time also includes documentation of this encounter, coordinating patient care and communicating with other healthcare professionals. Total time does not include separately billed tests performed on this date of service.
Data:
CXR 07-13-2023:
1. Hyperinflation, consistent with COPD.
2. Reticular interstitial thickening, suggestive of interstitial fibrosis or lymphangitic spread of tumor.
3. Nodular thickening of the left pleura at the left lung base. Differential diagnosis includes pneumonia, loculated pleural fluid and metastasis.
4. Small right pleural effusion is suspected.
CXR 07-15-2023:
Stable diffuse reticular interstitial thickening throughout the right and left lungs. No focal interstitial or airspace opacity to indicate superimposed pneumonia. The cardiomediastinal margins are stable. Stable right Tswnpr-l-Ipjk catheter, distal
tip at the inferior margin of the right atrium. No pneumothorax. As stable mild localized pleural thickening involving the lateral left mid to lower hemithorax.
CT Chest with IV contrast 07-13-2023:
IMPRESSION:
1). Moderate congestive heart failure
2). Extensive blastic osseous metastasis
3). Right mastectomy
TTE 07-14-2023:
Hyperdynamic left ventricular systolic function. LV ejection fraction is 70-
75%.
Stage II diastolic dysfunction suggestive of abnormal relaxation and increased
filling pressures.
Tiara EPIQ left ventricular global longitudinal strain is -20.1% (normal).
Mild/moderate mitral regurgitation.
Mild/moderate aortic stenosis (low flow, low gradient). Peak mean gradients are
12/5 mmHg, with calculated SATNAM 1.4cm2. SVI 29. Mild aortic regurgitation.
Severe tricuspid regurgitation. Mildly elevated PASP. Estimated pulmonary
artery pressure of 39 mmHg assuming a right atrial pressure of 8 mmHg.
No prior study available for comparison.
Subjective Data
-
Date of Service:
Date of Service: July 16, 2023
Chief Complaint: Pulmonary Follow Up
Subjective:
Patient seen and evaluated today at bedside. She denies shortness of breath or cough. She is on 1 L/min nasal cannula. She feels well and is eager to go home. Still has generalized weakness. She denies headache, chest pain, abdominal pain,
fevers or chills.
Review of Systems
General: Other (Negative unless mentioned above)
Objective Data
Data Reviewed
Vital Signs / I&O / Oxygen:
Vital Signs
Temp Pulse Resp BP Pulse Ox
98.1 F 88 14 86/56 99
07/16/23 08:10 07/16/23 09:04 07/16/23 07:34 07/16/23 09:04 07/16/23 07:34
Intake and Output
07/15/23 07/16/23 07/17/23
06:59 06:59 06:59
Intake Total 570.0 / 637.5 1022.5 / 1022.5
Output Total 800 / 800
Balance -230.0 / -162.5 1022.5 / 1022.5
SaO2 99
Nasal Cannula flow liters per 4
minute
Physical Exam
General: Respiratory Distress (Negative) and Comfortable
HEENT: Normocephalic and Anicteric
Cardiovascular: S1-S2 and Peripheral Edema (+1 lower extremity edema)
Respiratory: Wheeze (Negative), Crackles (Bibasilar), Rhonchi (Negative) and Non-Labored Respirations
GI: Soft, Non Distended and Non Tender
Neurology: AO x 3
Skin: Warm and Dry
Labs/Micro/Reports
Lab Data
07/16/23 04:34
07/16/23 04:34
Microbiology
07/13/23 15:15 Blood/Venous Blood Culture - Preliminary
No Growth in 48 hours- Final report to follow
07/13/23 15:15 Blood/Venous Blood Culture - Preliminary
No Growth in 48 hours- Final report to follow
07/14/23 09:19 Nose Nasal Screen MRSA (PCR) - Final
MRSA not detected - performed by PCR methodology.
07/13/23 15:25 Nasal Swab Influenza Types A & B (SABRA) - Final
Negative for Influenza A & B, NAAT
Negative results must be combined with clinical observations
and patient history.
Nucleic Acid Amplification test (NAAT)performed on the
[id number] platform.
--- NOTE | 2023-07-16 09:35 | PTCARENOTE ---
Patients blood pressure is 86/56, MAP 66. Dose of Midodrine administered. IV lasix held at this time. Dr. Angeles notified. New orders pending.
[2023-07-16] MEDS: LASIX 40 MG IV (09:50)
--- NOTE | 2023-07-16 10:34 | W.PN.CD ---
Today's Communication / Plan
-
Stop IV Lasix
Extra KCl
Recheck BMP this afternoon
Move to PO Lasix tomorrow
Hard to know if this is really heart failure
I am not convinced this is heart failure despite the CT report and elevated pBNP => may need to consider right heart cath
Impression / Plan
-
Background: 72 yo female with metastatic breast cancer, on salvage therapy with [place], CAD with stenting 2008, has been in ICU for treatment of ? septic shock in setting of ? suspected PNA. She is on antibiotics and was on Levophed. She reports
some SOB, and also edema
Suspected HFpEF
- Will monitor response to IV BID Furosemide
- If we confirm HFpEF then once decongested we will add GDMT (SGLT inhibitor, ARNI, and MRA (Aldactone)
- I am not convinced this is heart failure despite the CT report and elevated pBNP => may need to consider right heart cath.
Low BP => improved
- off levo
- Midodrine on 07/14/2023 but none today (07/15/2023)
Metastatic breast CA, continuing on active treatment and full code
CAD, remote [place], prior PCI/sent
Anemia, Hgb 8.5
Subjective:
Feels a bit better
Echo 07/14/2023: LVEF 70-75%, stage II diastolic dysfxn, mild/mod MR/. Severe TR, est PASP39 mmHg
Physical Exam
Vital Signs/Labs
Vital Signs
Temp Pulse Resp BP Pulse Ox
98.1 F 86 21 101/63 92
07/16/23 08:10 07/16/23 09:50 07/16/23 09:30 07/16/23 09:50 07/16/23 09:46
07/15/23 07/16/23 07/17/23
06:59 06:59 06:59
Actual Weight 50.8 kg 50.3 kg
07/16/23 04:34
PT 17.9 Sec (11.4-14.6) H 07/14/23 16:16
INR 1.49 07/14/23 16:16
APTT 36.8 Sec (23.4-35.0) H 07/14/23 16:16
Magnesium 2.1 mg/dl (1.6-2.3) 07/16/23 04:34
07/13/23 07/16/23
14:43 04:34
Dvq-Y-[id number] Pept [id number]
Physical Exam
Constitutional: No acute distress
EENT: Anicteric
Cardiovascular: Rhythm & rate is regular and S1S2 is normal
Respiratory: Respiratory effort normal and Lungs clear to auscul.
GI: Soft
Data Reviewed
-
Date of Service: July 16, 2023
[2023-07-16] MEDS: DUONEB INH (13:54)
[2023-07-16] MEDS: LOVENOX 40 MG SC (17:26)
[2023-07-16 18:08] LABS: Blood Urea Nitrogen 29 mg/dl (7-17); Calcium 8.4 mg/dl (8.4-10.2); Carbon Dioxide 29 mmol/L (22-30); Chloride 97 mmol/L (98-107); Estimated Creatinine Clearance 36 ml/min; Glucose 118 mg/dl (70-99); Potassium 4.6 mmol/L (3.5-5.1); Sodium 135 mmol/L (135-145); eGFR 52.73
[2023-07-17] VITALS (72 sets, daily range): BP systolic 90–121; BP diastolic 53–83; PULSE 92; O2SAT 92; BMI 18.6
[2023-07-17 05:44] LABS: Hematocrit 23.7 % (37.0-47.0); Hemoglobin 7.4 g/dL (12.0-16.0); Mean Corp Hgb Conc. 31.2 g/dL (33.0-37.0); Mean Corpuscular Hgb 27.2 pg (27.0-31.0); Mean Corpuscular Volume 87.1 fL (81.0-99.0); Platelet Count 74 10^3/uL (130-400); Red Blood Cell Count 2.72 10^6/uL (4.20-5.40); Red Cell Dist. Width 26.1 % (11.5-14.5); White Blood Cell Count 28.7 10^3/uL (4.8-10.8)
[2023-07-17 06:10] LABS: ALT (SGPT) 27 U/L (0-35); AST (SGOT) 36 U/L (14-36); Albumin 3.2 g/dl (3.5-5.0); Alkaline Phosphatase 142 U/L (38-126); Blood Urea Nitrogen 29 mg/dl (7-17); Calcium 8.2 mg/dl (8.4-10.2); Carbon Dioxide 27 mmol/L (22-30); Chloride 100 mmol/L (98-107); Estimated Creatinine Clearance 43 ml/min; Glucose 86 mg/dl (70-99); Potassium 5.2 mmol/L (3.5-5.1); Sodium 134 mmol/L (135-145); Total Bilirubin 0.6 mg/dl (0.2-1.3); Total Protein 5.8 g/dl (6.3-8.2); eGFR > 60.00
[2023-07-17] MEDS: DUONEB 3 ML INH ×3 (07:51→18:08)
--- NOTE | 2023-07-17 08:19 | W.PN.CD ---
Today's Communication / Plan
-
hold diuretics
NPO after midnight for RHC tomorrow
Impression / Plan
-
Background: 72 yo female with metastatic breast cancer, on salvage therapy with [place], CAD with stenting 2008, has been in ICU for treatment of ? septic shock in setting of ? suspected PNA. She is on antibiotics and was on Levophed. She reports
some SOB, and also edema
Suspected HFpEF
- Will monitor response to IV BID Furosemide
- If we confirm HFpEF then once decongested we will add GDMT (SGLT inhibitor, ARNI, and MRA (Aldactone)
- RHC tomorrow, volume status is not impressive
- BP are marginal will obtain RHC tomorrow
Low BP => improved
- off levo
- Midodrine on 07/14/2023 but none today (07/15/2023)
Metastatic breast CA, continuing on active treatment and full code
CAD, remote [place], prior PCI/sent
Anemia, Hgb 8.5
Subjective:
Feels a bit better
Echo 07/14/2023: LVEF 70-75%, stage II diastolic dysfxn, mild/mod MR/. Severe TR, est PASP39 mmHg
Physical Exam
Vital Signs/Labs
Vital Signs
Temp Pulse Resp BP Pulse Ox
98.6 F 90 16 90/60 95
07/17/23 07:58 07/17/23 07:54 07/17/23 07:54 07/17/23 06:30 07/17/23 07:54
07/16/23 07/17/23 07/18/23
06:59 06:59 06:59
Actual Weight 110 lb 14.28 oz 108 lb 7.479 oz
07/17/23 05:30
07/17/23 05:30
PT 17.9 Sec (11.4-14.6) H 07/14/23 16:16
INR 1.49 07/14/23 16:16
APTT 36.8 Sec (23.4-35.0) H 07/14/23 16:16
Magnesium 2.1 mg/dl (1.6-2.3) 07/16/23 04:34
07/13/23 07/16/23
14:43 04:34
Tyo-V-Lvixjsjodqc Pept [id number]
Physical Exam
Constitutional: No acute distress
EENT: Anicteric
Cardiovascular: Rhythm & rate is regular and Pedal edema present (trace)
Respiratory: Respiratory effort normal and Lungs clear to auscul.
GI: Soft
Neuro/Psych: AO x 3
Data Reviewed
-
Date of Service: July 17, 2023
EKG: Tracing Personally Visualized and interpreted (nsr)
Echo: Report Reviewed by me
Labs: Labs Reviewed by me (hyperkalemia )
--- NOTE | 2023-07-17 09:09 | W.PN.HOSP.TC ---
Today's Communication/Plan
-
Stable for telemetry
Assessment / Plan
Assessment / Plan
HPI: 72-year-old female past medical history of metastatic breast cancer on chemotherapy, CAD, COPD, hypercholesteremia, presenting to the emergency room because patient had lab work done at [facility] yesterday and family received a phone call stating
the lab work was abnormal and she needed to go to the hospital. Labs showed significant leukocytosis, elevated ANC, acute kidney injury and mild transaminitis. Over the past few days patient has gotten very weak and difficulty caring for herself
and performing activities of daily living. Patient was not even able to get up and walk to the bathroom on her own at this time.
Patient's last chemotherapy was on June 26 and she is scheduled for a new round this coming Monday. She has mild cough with green sputum and mild shortness of breath for the past few days. Patient has not had any fever, change in oral intake,
abdominal pain or nausea vomiting or diarrhea. He has also had increased lower extreme edema. No weight gain or weight loss.
Patient has been seeing palliative care within the past 2 days given her guarded prognosis. The metastatic breast cancer with metastasis to lining of brain, bone and back and liver but not to lung as per their knowledge. Patient smokes 1 cigarette
a day. No alcohol use.
#Hypotension
Unable to give IV fluids secondary to CHF
Status post Levophed
Resolved, has not required midodrine since 07/15
Stable for tele
# Acute heart failure with a preserved ejection fraction
#Bilateral lower extremity edema
Echo with an EF 70-75%, stage II diastolic dysfunction, mild pulmonary hypertension
Cardiac BNP of 11,000
Echo reviewed, cardiology following
Appreciate cardiology input, status post IV Lasix, now on Lasix 40 mg p.o. daily
Cardiology recommending right heart cath tomorrow
# Dyspnea multifactorial secondary to left lower lobe pneumonia/possible loculated pleural effusion as well as CHF exacerbation
Treat as below
#Left lower lobe pneumonia ruled out
Patient has a leukocytosis with bandemia
COVID-negative, influenza negative
Chest CT shows CHF, osseous metastases, right mastectomy
Procalcitonin 0.64 likely from cancer, MRSA neg
Pulm started prednisone, bronchodilators
Appreciate oncology input, rising white count due to patient receiving G-CSF 07/05/23 & steroids
Vancomycin discontinued, Zosyn discontinued, continue azithromycin for anti-inflammatory effects
#Hypokalemia
Repleted and resolved
# Transaminitis likely secondary to hepatic venous congestion versus liver metastases
Monitor with diuresis
# Acute on chronic normocytic anemia likely chemotherapy related
Hemoglobin 7.4, was 7.2, was 8.4, was 7.4, was 8.0, down from baseline 10.4
Monitor, transfuse for hemoglobin less than 7.0
#History of metastatic breast cancer with metastases to lining of brain, bone, back and liver
Patient seeing palliative care outpatient, follows up with Dr. Lepe, currently getting outpatient chemo
Family again asking about prognosis, appreciate oncology input
Patient wishes to continue all treatment possible, and remain full code
Continue oxycodone and Zofran
Coronary artery disease with history of stents
COPD
Hypercholesterolemia
Dementia/depression
-Continue memantine
-Continue Zoloft
DVT prophylaxis�subcu Lovenox
Full code as confirmed by patient
Updated family at bedside 07/16
Total time spent to see the patient on the floor, examine the patient, review data and lab results, discuss treatment plan with patient, nursing staff around 52 minutes.
Physical Exam
General: Appears chronically ill, no acute distress
HEENT: Normocephalic, Atraumatic, EOMI, MMM
Respiratory: Bibasilar crackles
Cardiac: Normal S1/S2, Regular Rate and Rhythm
Chest wall: Port noted on right chest wall
GI: Soft, Nontender, Nondistended, Normal Bowel Sounds
Extremities: No Clubbing, Cyanosis
Bilateral lower extremity edema noted
Neuro: Nonfocal/Grossly Intact
Psych: Calm, Cooperative
Anticipated Discharge: 24 - 48 hours
Subjective/Interval History
-
Date of Service: July 16, 2023
Patient reports feeling better. Denies chest pain, denies shortness of breath. Cough continues to improve. No fever, no vomiting.
Objective Data
-
Labs:
Laboratory Results
07/16/23 07/16/23
04:34 17:00
WBC 33.2 H
Hgb 7.2 L
Hct 23.4 L
Plt Count 82 L D
Sodium 134 L Pending
Potassium 3.2 L Pending
Chloride 99 Pending
Carbon Dioxide 29 Pending
BUN 32 H Pending
Creatinine 1.1 H Pending
Glucose 100 H Pending
Calcium 7.8 L Pending
Total Bilirubin 0.8
AST 36
ALT 29
Alkaline Phosphatase 164 H
Vital Signs:
Vital Signs
Temp Pulse Resp BP Pulse Ox
98.4 F 86 21 101/63 94
07/16/23 11:43 07/16/23 09:50 07/16/23 09:30 07/16/23 09:50 07/16/23 11:23
I&O
07/15/23 07/16/23 07/17/23
06:59 06:59 06:59
Intake Total 570.0 / 637.5 1022.5 / 1022.5
Output Total 800 / 800
Balance -230.0 / -162.5 1022.5 / 1022.5
--- NOTE | 2023-07-17 09:11 | W.PN.PUL.V3 ---
Today's Communication / Plan
-
No change in prednisone
Continue antibiotics
Wean oxygen
Diuresis as tolerated
Right heart catheterization tomorrow
Assessment
-
Assessment: 72-year-old female tobacco smoker with a PMHx of CAD s/p coronary stents x 2, hyperlipidemia, history of metastatic breast cancer on chemotherapy with history of brain radiation (2022), GERD, ADHD and anemia who presents with abnormal
outpatient labs (worsening leukocytosis) with altered mental status and shortness of breath. Patient also has been having worsening lower extremity swelling and increased sputum production. Labs show elevated proBNP of 11,200 and leukocytosis to
29.6. Imaging concerning for acute congestive heart failure +/- pneumonia. She was started on antibiotics, diuresed and initially admitted to telemetry. Unfortunately her blood pressure dropped with her SBP in the 80s on 07/14/2023 requiring
vasopressors. Patient now transferred to the ICU for further care and critical care services consulted for additional management/recommendations.
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
radiation therapy and Arimidex, CAD s/p angioplasty with stent placement x 2 (2008), hyperlipidemia, history of adjustment disorder with depressed mood, osteoporosis, anemia due to antineoplastic chemotherapy
Impression:
#Shock due to CAP - shock state resolved
#CAP
#Severe centrilobular emphysema with suspected COPD with acute exacerbation
#Tobacco use disorder
#Acute HFpEF exacerbation with acute pulmonary edema - improving
#Acute respiratory failure with hypoxemia due to above - improved
#Stage II diastolic dysfunction with valvular heart disease (mild�moderate MR; mild�moderate AAS)
#History of metastatic breast cancer (HR positive/HER2 negative) with bone, liver, dural brain metastasis, stage IV on salvage chemotherapy with Hx of brain radiation (2022)
#History of invasive ductal carcinoma s/p mastectomy (2009 � right breast), followed by chemotherapy/radiation (initially stage IIb)
#History of radiation fibrosis
#Chemotherapy-induced anemia
#CAD s/p stents
Plan:
Respiratory status slowly improving
Continue attempts at weaning FiO2
Assess discharge supplemental oxygen needs prior to discharge
Aspiration precautions
Mucolytic's
Nebulizers continue
Prednisone taper-no change today
Follow-up cultures
Empiric antibiotics
Diuresis as tolerated
Monitor renal function, electrolytes, intake/output, lower extremity edema and weight
Replace electrolytes as needed
Echocardiogram noted-summarized below
Cardiology following-correspondence reviewed-diuretics on hold and right heart catheterization 07/18/23
Smoking cessation counseling ongoing
Nicotine patch
DVT prophylaxis
Nutrition
Early mobilization/physical therapy
Outpatient pulmonary gwppar-tn-YIOr, etc.
Data:
CXR 07-13-2023:
1. Hyperinflation, consistent with COPD.
2. Reticular interstitial thickening, suggestive of interstitial fibrosis or lymphangitic spread of tumor.
3. Nodular thickening of the left pleura at the left lung base. Differential diagnosis includes pneumonia, loculated pleural fluid and metastasis.
4. Small right pleural effusion is suspected.
CXR 07-15-2023:
Stable diffuse reticular interstitial thickening throughout the right and left lungs. No focal interstitial or airspace opacity to indicate superimposed pneumonia. The cardiomediastinal margins are stable. Stable right Gjppjs-n-Tfwb catheter, distal
tip at the inferior margin of the right atrium. No pneumothorax. As stable mild localized pleural thickening involving the lateral left mid to lower hemithorax.
CT Chest with IV contrast 07-13-2023:
IMPRESSION:
1). Moderate congestive heart failure
2). Extensive blastic osseous metastasis
3). Right mastectomy
TTE 07-14-2023:
Hyperdynamic left ventricular systolic function. LV ejection fraction is 70-
75%.
Stage II diastolic dysfunction suggestive of abnormal relaxation and increased
filling pressures.
Tiara EPIQ left ventricular global longitudinal strain is -20.1% (normal).
Mild/moderate mitral regurgitation.
Mild/moderate aortic stenosis (low flow, low gradient). Peak mean gradients are
12/5 mmHg, with calculated SATNAM 1.4cm2. SVI 29. Mild aortic regurgitation.
Severe tricuspid regurgitation. Mildly elevated PASP. Estimated pulmonary
artery pressure of 39 mmHg assuming a right atrial pressure of 8 mmHg.
No prior study available for comparison.
Subjective Data
-
Date of Service:
Date of Service: July 17, 2023
Chief Complaint: Pulmonary Follow Up and Dyspnea Follow Up
Subjective:
Denies any increased shortness of breath, chest pain, chest congestion, productive cough, pleurisy or abdominal pain
Review of Systems
General: Other (Per HPI)
Objective Data
Data Reviewed
Vital Signs / I&O:
Vital Signs
Temp Pulse Resp BP Pulse Ox
98.6 F 90 16 90/60 95
07/17/23 07:58 07/17/23 07:54 07/17/23 07:54 07/17/23 06:30 07/17/23 07:54
Intake and Output
07/16/23 07/17/23 07/18/23
06:59 06:59 06:59
Intake Total 1022.5 / 1022.5
Output Total 200 / 200
Balance 1022.5 / 1022.5 -200 / -200
SaO2: 95
Nasal Cannula flow liters per minute: 1
Physical Exam
General: Respiratory Distress (Negative) and Comfortable
HEENT: Normocephalic and Anicteric
Cardiovascular: Regular Rhythm and Peripheral Edema (+1 lower extremity edema)
Respiratory: Wheeze (Forced expiratory), Crackles (Bibasilar), Rhonchi (Negative), Non-Labored Respirations and Accessory Resp Muscle Use (n)
GI: Soft, Non Distended and Non Tender
Neurology: Awake, Alert and No Motor Deficits
Skin: Warm, Good Color, Cyanosis (n) and Jaundice (n)
Labs/Micro/Reports
Lab Data
07/17/23 05:30
07/17/23 05:30
Microbiology
07/13/23 15:15 Blood/Venous Blood Culture - Preliminary
No Growth in 72 hours- Final report to follow
07/13/23 15:15 Blood/Venous Blood Culture - Preliminary
No Growth in 72 hours- Final report to follow
07/14/23 09:19 Nose Nasal Screen MRSA (PCR) - Final
MRSA not detected - performed by PCR methodology.
[2023-07-17] MEDS: DELTASONE 40 MG PO (09:21)
[2023-07-17] MEDS: OXYCONTIN (CONTROLLED RELEASE) 10 MG PO ×2 (09:23→19:53)
[2023-07-17] MEDS: LASIX 40 MG PO (09:24)
[2023-07-17] MEDS: LOW STRENGTH ASPIRIN 81 MG PO (09:24)
[2023-07-17] MEDS: ZITHROMAX 250 MG PO (09:24)
[2023-07-17] MEDS: ZOLOFT 25 MG PO (09:24)
[2023-07-17] MEDS: NAMENDA 10 MG PO ×2 (09:24→19:53)
--- NOTE | 2023-07-17 13:38 | W.PN.ONC2 ---
Today's Communication / Plan
-
Agree with R heart cath as planned.
Impression
Impression
Metastatic breast cancer, on salvage chemotherapy with Halaven (4th line metastatic); mets to liver, brain, bones, nodes
Leukocytosis, from Rolvedon (GCSF, 07/05/23, plus steroids)
HFPEF
Weakness
Change in mental status on admission
Plan
Plan
Unclear clinical picture:
- Treated for septic shock but no obvious infection based on CT scan, cultures; afebrile.
- Question of CHF. Looks like she gained 5+ kg between 13:22 and 19:54 on 07/12 based on documented weights so maybe not surprising that O2 requirement went up. However, BNP was already elevated when drawn an hour into the hydration. ECHO
suggestive of diastolic dysfunction.
- Weakness on admission was out of proportion to degree of anemia. Halaven can cause motor as well as sensory neuropathy, but median time to onset is 5 months and pt has had only 1.5 cycles of Halaven so far.
Halaven side effects include peripheral edema, asthenia/fatigue, dyspnea, sensory and motor neuropathy as above.
Agree with R heart cath to try to clarify clinical picture and optimize cardiopulmonary status, also try to exclude Halaven as primary cause of decompensation (and determine whether she can continue).
Subjective/Objective
Chief Complaint
Heme/Onc follow up of metastatic breast cancer, admitted with weakness/failure to thrive/sepsis from pna vs. other
Subjective
Feeling overall better. Currently on 1L O2 without shortness of breath, visiting with family.
Vital Signs:
Vital Signs
Temp Pulse Resp BP Pulse Ox
98 F 90 18 107/71 95
07/17/23 11:38 07/17/23 13:33 07/17/23 13:33 07/17/23 11:34 07/17/23 13:33
Lab Results:
Laboratory Data
WBC 28.7 10^3/uL (4.8-10.8) H 07/17/23 05:30
Hgb 7.4 g/dL (12.0-16.0) L 07/17/23 05:30
Plt Count 74 10^3/uL (130-400) L 07/17/23 05:30
PT 17.9 Sec (11.4-14.6) H 07/14/23 16:16
INR 1.49 07/14/23 16:16
APTT 36.8 Sec (23.4-35.0) H 07/14/23 16:16
eGFR > 60.00 07/17/23 05:30
Physical Exam
HEENT: Moist Mucous Membranes and Other (very pale appearing); No Jaundice
Cardiology: Normal Sinus Rhythm, S1 and S2
Pulmonary: Wheezes, Rales (bibasilar) and Other (decreased)
GI: Soft and Normal Bowel Sounds
Extremities: No C/C/E
Neuro: Non Focal
Review of Systems
Review of Systems
Constitutional: Reports Fatigue; Denies Fever
Head: Denies Sore Throat or Hearing Loss
Respiratory: Reports Dyspnea and Cough
Cardiovascular: Denies Chest Pain or Palpitations
Gastrointestinal: Denies Nausea/Vomiting or Diarrhea
Genitourinary: Denies Hematuria
Skin: Denies Rash or Pruritis
Neurological: Denies Headache or Numbness
Psychiatric: Denies Depression or Insomnia
Hem/Lymphatic: Denies Easy Bruising or Night Sweats
--- NOTE | 2023-07-17 15:11 | PTCARENOTE ---
Patients pulse ox 91% on room air. During physical therapy pulse ox dropped while ambulating on room air. Patients pulse ox 94% on 1 liter oxygen while at rest. Patient is with family at bedside. Appetite is good today. Out of bed to chair, and
walks to bathroom with rolling walker. Denies pain when asked. Compliant with plan of care.
--- NOTE | 2023-07-17 15:47 | CM ---
Patient with Hx metastatic breast CA on Halaven & GCSF chemo, dementia with Dx HF, anemia. O2 1.5L. Plan right heart cath tomorrow. Receiving PO Abx, oxycontin. PT recommends skilled rehab. OT recommends HH vs SNF.
Per MD notes patient is current with Palliative Care.
Spoke with patient's daughter Saumya Bennett; daughter says patient has been confused/forgetful at times recently. She is hoping her mother can go to SNF for short term rehab before returning home alone to her apartment, so that her mobility will be
optimized. She is aware that her mother may need a caregiver when she returns home. Saumya and her sister Sanna Chin both live nearby and assist their mother as needed, however both have families and cannot stay with the patient. Discussed local
SNFs and provided NH ratings. Saumya agrees to receive SNF list to her email - sent to [email or web address]. Saumya says oncologist has informed her that her mother may or may not continue on Halaven chemo depending on the results of the heart
cath. If continues on chemo while at SNF, daughter is available to transport her mother to [facility] for the chemo. Saumya prefers SNFs between [facility] and [place]- discussed [facility] [facility], [facility],
[facility], [facility].
Saumya requests secondary contact added, admitting notified- daughter Sanna Chin, [place] [phone].
Message from Dr Hillman; await results of heart cath to determine if patient will continue on chemo, and timing of next chemo dose (if can restart after SNF rehab completes).
Plan SNF referrals once decisions known re; chemo.
[2023-07-17] MEDS: LOVENOX 30 MG SC (16:58)
--- NOTE | 2023-07-17 20:00 | PTCARENOTE ---
assumed care of patient, pt is tele level of care- report given to 4E RN, pt transported to [facility] via with belongings w/o issues.
--- NOTE | 2023-07-17 20:53 | PTCARENOTE ---
Pt arrived from IMU in wheelchair and ambulated w/ assist x1 sating 96 1L NC. Pt is AAOx3, VSS, w/o complaints of pain. Pt is oriented to room resting comfortably w/ call domingo within reach.
[2023-07-18] VITALS (13 sets, daily range): BP systolic 93–120; BP diastolic 58–74; BMI 19.0
[2023-07-18 05:25] LABS: Hematocrit 23.3 % (37.0-47.0); Hemoglobin 7.3 g/dL (12.0-16.0); Mean Corp Hgb Conc. 31.3 g/dL (33.0-37.0); Mean Corpuscular Hgb 27.7 pg (27.0-31.0); Mean Corpuscular Volume 88.3 fL (81.0-99.0); Platelet Count 63 10^3/uL (130-400); Red Blood Cell Count 2.64 10^6/uL (4.20-5.40); Red Cell Dist. Width 26.5 % (11.5-14.5); White Blood Cell Count 29.2 10^3/uL (4.8-10.8)
[2023-07-18 05:48] LABS: Blood Urea Nitrogen 23 mg/dl (7-17); Calcium 8.3 mg/dl (8.4-10.2); Carbon Dioxide 29 mmol/L (22-30); Chloride 103 mmol/L (98-107); Estimated Creatinine Clearance 38 ml/min; Glucose 85 mg/dl (70-99); Magnesium 2.4 mg/dl (1.6-2.3); Potassium 4.4 mmol/L (3.5-5.1); Sodium 135 mmol/L (135-145); eGFR 59.12
--- NOTE | 2023-07-18 06:53 | W.PN.HOSP.TC ---
Today's Communication/Plan
-
cont diuresis as per cardio
midodrine prn
bronchodilators, prednisone taper as per Pulm
monitor H&H
Assessment / Plan
Assessment / Plan
HPI: 72-year-old female past medical history of metastatic breast cancer on chemotherapy, CAD, COPD, hypercholesteremia, presenting to the emergency room because patient had lab work done at [facility] yesterday and family received a phone call stating
the lab work was abnormal and she needed to go to the hospital. Labs showed significant leukocytosis, elevated ANC, acute kidney injury and mild transaminitis. Over the past few days patient has gotten very weak and difficulty caring for herself
and performing activities of daily living. Patient was not even able to get up and walk to the bathroom on her own at this time.
Patient's last chemotherapy was on June 26 and she is scheduled for a new round this coming Monday. She has mild cough with green sputum and mild shortness of breath for the past few days. Patient has not had any fever, change in oral intake,
abdominal pain or nausea vomiting or diarrhea. He has also had increased lower extreme edema. No weight gain or weight loss.
Patient has been seeing palliative care within the past 2 days given her guarded prognosis. The metastatic breast cancer with metastasis to lining of brain, bone and back and liver but not to lung as per their knowledge. Patient smokes 1 cigarette
a day. No alcohol use.
#Hypotension
Unable to give IV fluids secondary to CHF
Status post Levophed
Resolved, has not required midodrine since 07/15
Stable for tele
# Acute heart failure with a preserved ejection fraction
#Bilateral lower extremity edema
Echo with an EF 70-75%, stage II diastolic dysfunction, mild pulmonary hypertension
Cardiac BNP of 11,000
status post IV Lasix, now on Lasix 40 mg p.o. daily
Cardiology eval appreciated s/p right heart cath 07/17 appreciated likely mild fluid overload
# Dyspnea multifactorial secondary to left lower lobe pneumonia/possible loculated pleural effusion as well as CHF exacerbation
Treat as below
#Left lower lobe pneumonia ruled out
Patient has a leukocytosis with bandemia
COVID-negative, influenza negative
Chest CT shows CHF, osseous metastases, right mastectomy
Procalcitonin 0.64 likely from cancer, MRSA neg
Pulm eval appreciated cont prednisone taper, bronchodilators
Appreciate oncology input, rising white count due to patient receiving G-CSF 07/05/23 & steroids
Vancomycin discontinued, Zosyn discontinued, azithromycin completed
#Hypokalemia
Repleted and resolved
# Transaminitis likely secondary to hepatic venous congestion versus liver metastases
Monitor with diuresis
# Acute on chronic normocytic anemia likely chemotherapy related
H&H stable
Monitor, transfuse for hemoglobin less than 7.0
#History of metastatic breast cancer with metastases to lining of brain, bone, back and liver
Patient seeing palliative care outpatient, follows up with Dr. Lepe, currently getting outpatient chemo
Family again asking about prognosis, appreciate oncology input
Patient wishes to continue all treatment possible, and remain full code
Continue oxycodone and Zofran
Coronary artery disease with history of stents
COPD
Hypercholesterolemia
Dementia/depression
-Continue memantine
-Continue Zoloft
DVT prophylaxis�subcu Lovenox
Full code as confirmed by patient
PT/OT appreciated SNF vs H&H
discussed with patient, patient's sister Sia, and Patient's daughter Saumya
Total time spent to see the patient on the floor, examine the patient, review data and lab results, discuss treatment plan with patient, nursing staff around 55 minutes.
Physical Exam
General: Appears chronically ill, no acute distress
HEENT: Normocephalic, Atraumatic, EOMI, MMM
Respiratory: Clear to auscultation b/l
Cardiac: Normal S1/S2, Regular Rate and Rhythm
Chest wall: Port noted on right chest wall
GI: Soft, Nontender, Nondistended, Normal Bowel Sounds
Extremities: No Clubbing, Cyanosis
Bilateral lower extremity edema noted
Neuro: Nonfocal/Grossly Intact
Psych: Calm, Cooperative
Anticipated Discharge: 24 - 48 hours
Subjective/Interval History
-
Date of Service: July 18, 2023
Seen and examined at bedside in no acute distress sitting up comfortably in chair. Reports overall feeling well. Denies new acute issues at this time. Sister Sia and Daughter Saumya present during evaluation.
Objective Data
-
Labs:
Laboratory Results
07/18/23
04:47
WBC 29.2 H
Hgb 7.3 L
Hct 23.3 L
Plt Count 63 L
Sodium 135
Potassium 4.4
Chloride 103
Carbon Dioxide 29
BUN 23 H
Creatinine 1.0
Glucose 85
Calcium 8.3 L
Vital Signs:
Vital Signs
Temp Pulse Resp BP Pulse Ox
98 F 86 15 95/61 92
07/18/23 03:17 07/18/23 03:17 07/18/23 03:17 07/18/23 03:17 07/18/23 03:17
I&O
07/16/23 07/17/23 07/18/23
06:59 06:59 06:59
Intake Total 1022.5 / 1022.5 677 / 677
Output Total 200 / 200 100 / 100
Balance 1022.5 / 1022.5 -200 / -200 577 / 577
[2023-07-18] MEDS: DUONEB 3 ML INH ×3 (07:37→19:54)
[2023-07-18] MEDS: LOW STRENGTH ASPIRIN 81 MG PO (09:22)
[2023-07-18] MEDS: ZITHROMAX 250 MG PO (09:22)
[2023-07-18] MEDS: OXYCONTIN (CONTROLLED RELEASE) 10 MG PO ×2 (09:22→21:01)
[2023-07-18] MEDS: DELTASONE 30 MG PO (09:23)
[2023-07-18] MEDS: NAMENDA 10 MG PO ×2 (09:23→21:01)
[2023-07-18] MEDS: ZOLOFT 25 MG PO (09:24)
--- NOTE | 2023-07-18 09:25 | W.PN.PUL.V3 ---
Today's Communication / Plan
-
Wean oxygen
Diuresis as tolerated
Steroid taper-currently on prednisone 30 mg
Right heart catheterization
Assessment
-
Assessment: 72-year-old female tobacco smoker with a PMHx of CAD s/p coronary stents x 2, hyperlipidemia, history of metastatic breast cancer on chemotherapy with history of brain radiation (2022), GERD, ADHD and anemia who presents with abnormal
outpatient labs (worsening leukocytosis) with altered mental status and shortness of breath. Patient also has been having worsening lower extremity swelling and increased sputum production. Labs show elevated proBNP of 11,200 and leukocytosis to
29.6. Imaging concerning for acute congestive heart failure +/- pneumonia. She was started on antibiotics, diuresed and initially admitted to telemetry. Unfortunately her blood pressure dropped with her SBP in the 80s on 07/14/2023 requiring
vasopressors. Patient now transferred to the ICU for further care and critical care services consulted for additional management/recommendations.
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
radiation therapy and Arimidex, CAD s/p angioplasty with stent placement x 2 (2008), hyperlipidemia, history of adjustment disorder with depressed mood, osteoporosis, anemia due to antineoplastic chemotherapy
Impression:
#Shock due to CAP - shock state resolved
#CAP
#Severe centrilobular emphysema with suspected COPD with acute exacerbation
#Tobacco use disorder
#Acute HFpEF exacerbation with acute pulmonary edema - improving
#Acute respiratory failure with hypoxemia due to above - improved
#Stage II diastolic dysfunction with valvular heart disease (mild�moderate MR; mild�moderate AAS)
#History of metastatic breast cancer (HR positive/HER2 negative) with bone, liver, dural brain metastasis, stage IV on salvage chemotherapy with Hx of brain radiation (2022)
#History of invasive ductal carcinoma s/p mastectomy (2008 � right breast), followed by chemotherapy/radiation (initially stage IIb)
#History of radiation fibrosis
#Chemotherapy-induced anemia
#CAD s/p stents
Plan:
Respiratory status has improved
Continue attempts at weaning FiO2-this morning she was on room air
Assess discharge supplemental oxygen needs prior to discharge
Aspiration precautions
Mucolytic's
Nebulizers continue
Prednisone taper-no change today-currently on 30 mg daily
Follow-up cultures
Empiric antibiotics
Continue diuresis as tolerated
Monitor renal function, electrolytes, intake/output, lower extremity edema and weight
Replace electrolytes as needed
Echocardiogram noted-summarized below
Cardiology following-correspondence reviewed-diuretics on hold and right heart catheterization 07/18/23
Right heart catheterization today-pending
Smoking cessation counseling ongoing
Nicotine patch
DVT prophylaxis
Nutrition
Early mobilization/physical therapy
Outpatient pulmonary [id number], etc.
Data:
CXR 07-13-2023:
1. Hyperinflation, consistent with COPD.
2. Reticular interstitial thickening, suggestive of interstitial fibrosis or lymphangitic spread of tumor.
3. Nodular thickening of the left pleura at the left lung base. Differential diagnosis includes pneumonia, loculated pleural fluid and metastasis.
4. Small right pleural effusion is suspected.
CXR 07-15-2023:
Stable diffuse reticular interstitial thickening throughout the right and left lungs. No focal interstitial or airspace opacity to indicate superimposed pneumonia. The cardiomediastinal margins are stable. Stable right Nrzenq-r-[id number] catheter, distal
tip at the inferior margin of the right atrium. No pneumothorax. As stable mild localized pleural thickening involving the lateral left mid to lower hemithorax.
CT Chest with IV contrast 07-13-2023:
IMPRESSION:
1). Moderate congestive heart failure
2). Extensive blastic osseous metastasis
3). Right mastectomy
TTE 07-14-2023:
Hyperdynamic left ventricular systolic function. LV ejection fraction is 70-
75%.
Stage II diastolic dysfunction suggestive of abnormal relaxation and increased
filling pressures.
Tiara EPIQ left ventricular global longitudinal strain is -20.1% (normal).
Mild/moderate mitral regurgitation.
Mild/moderate aortic stenosis (low flow, low gradient). Peak mean gradients are
12/5 mmHg, with calculated SATNAM 1.4cm2. SVI 29. Mild aortic regurgitation.
Severe tricuspid regurgitation. Mildly elevated PASP. Estimated pulmonary
artery pressure of 39 mmHg assuming a right atrial pressure of 8 mmHg.
No prior study available for comparison.
Subjective Data
-
Date of Service:
Date of Service: July 18, 2023
Chief Complaint: Pulmonary Follow Up and Dyspnea Follow Up
Subjective:
Feels better, less short of breath, on room air, no complaints of chest pain or abdominal pain
Review of Systems
General: Other (Per HPI)
Objective Data
Data Reviewed
Vital Signs / I&O:
Vital Signs
Temp Pulse Resp BP Pulse Ox
97.7 F 80 16 93/61 95
07/18/23 07:50 07/18/23 07:50 07/18/23 07:50 07/18/23 07:50 07/18/23 07:50
Intake and Output
07/17/23 07/18/23 07/19/23
06:59 06:59 06:59
Intake Total 677 / 677
Output Total 200 / 200 100 / 100
Balance -200 / -200 577 / 577
SaO2: 95
Nasal Cannula flow liters per minute: 1.5
Physical Exam
General: Respiratory Distress (Negative) and Comfortable
HEENT: Normocephalic and Anicteric
Cardiovascular: Regular Rhythm and Peripheral Edema (+1 lower extremity edema)
Respiratory: Wheeze (Forced expiratory), Crackles (Bibasilar), Rhonchi (Negative), Non-Labored Respirations and Accessory Resp Muscle Use (n)
GI: Soft, Non Distended and Non Tender
Neurology: Awake, Alert and No Motor Deficits
Skin: Warm, Good Color, Cyanosis (n) and Jaundice (n)
Labs/Micro/Reports
Lab Data
07/18/23 04:47
07/18/23 04:47
Microbiology
07/13/23 15:15 Blood/Venous Blood Culture - Preliminary
No Growth in 4 days- Final report to follow
07/13/23 15:15 Blood/Venous Blood Culture - Preliminary
No Growth in 4 days- Final report to follow
[2023-07-18] MEDS: LASIX PO (09:27)
--- NOTE | 2023-07-18 10:42 | CM ---
Patient seen bedside. Per chart, plan for right heart catheterization today. Per previous CM note: If continues on chemo while at SNF, daughter is available to transport patient to [facility] for the chemo. Saumya prefers SNFs between
[facility]- discussed [facility], [facility], [facility], [facility], [facility], [facility]. CM will continue to follow for discharge planning needs.
Plan; SNF referrals once decisions known re; chemo.
--- NOTE | 2023-07-18 11:08 | W.PN.ONC ---
Today's Communication / Plan
-
For right heart cath today to clarify clinical picture and optimize cardiopulmonary status
Patient wishes to have further discussion of chemotherapy plans/GOC with Dr. Lepe tomorrow as she missed office visit on 07/16
TT sent to Dr[address] Lepe with patient's request - Dr. Lepe will see patient tomorrow during rounds
Supportive care
Emotional support
We will follow.
Impression
Impression
Metastatic breast cancer, on salvage chemotherapy with Halaven (4th line metastatic); mets to liver, brain, bones, nodes
Leukocytosis, from Rolvedon (GCSF, 07/05/23, plus steroids)
HFPEF
Subjective/Objective
Subjective/Objective
Patient is sitting up in bed. She states she is going for heart cath at 12:30 today. she denies pain. family at bedside.
Vital Signs:
Vital Signs
Temp Pulse Resp BP Pulse Ox
97.7 F 80 16 93/61 95
07/18/23 07:50 07/18/23 07:50 07/18/23 07:50 07/18/23 07:50 07/18/23 09:40
Lab Results:
Laboratory Data
WBC 29.2 10^3/uL (4.8-10.8) H 07/18/23 04:47
Hgb 7.3 g/dL (12.0-16.0) L 07/18/23 04:47
Plt Count 63 10^3/uL (130-400) L 07/18/23 04:47
PT 17.9 Sec (11.4-14.6) H 07/14/23 16:16
INR 1.49 07/14/23 16:16
APTT 36.8 Sec (23.4-35.0) H 07/14/23 16:16
eGFR 59.12 07/18/23 04:47
physical exam:
aaox3, profound pallor, chronically ill appearing
HRR, lungs diminished, scattered wheeze
+bowel sounds
--- NOTE | 2023-07-18 15:38 | PTCARENOTE ---
Pt leaving to the lab scientist with the staff from lab scientist on her hospital bed. Family is in attendance. pt is a+ox3 and in no distress.
--- NOTE | 2023-07-18 16:20 | ITS.CL.CATH ---
Personnel Analyst - Catheterization
Cardiac Catheterization
Procedure Report:
RIGHT HEART CATHETERIZATION
Date of Procedure: 07/18/2023
Referring: Riley Toro MD
INDICATION: Assess volume status
RA: 17
RV: 40/18
PA: 40/20
PCWP: 24
Oximetry: Ao 96%, PA 57%, cardiac output 3.5, cardiac index 2.3
COMPLICATIONS: None
Radiation (mGy): 2.3
DAP (cm2.Gy): 0.4
Fluoroscopy time: 0.5 minutes
CONCLUSION: Mild pulmonary hypertension with elevated left and right heart filling pressures and normal cardiac output. Patient is likely mildly fluid overloaded
Copy to: Riley Toro MD
Odin Villalpando MD, [facility], [facility]
[2023-07-18] MEDS: LOVENOX 30 MG SC (17:28)
[2023-07-19] VITALS (7 sets, daily range): BP systolic 94–102; BP diastolic 51–64; PULSE 97; O2SAT 91; BMI 18.9
[2023-07-19 04:38] LABS: Hematocrit 24.5 % (37.0-47.0); Hemoglobin 7.5 g/dL (12.0-16.0); Mean Corp Hgb Conc. 30.6 g/dL (33.0-37.0); Mean Corpuscular Hgb 27.2 pg (27.0-31.0); Mean Corpuscular Volume 88.8 fL (81.0-99.0); Platelet Count 64 10^3/uL (130-400); Red Blood Cell Count 2.76 10^6/uL (4.20-5.40); Red Cell Dist. Width 26.9 % (11.5-14.5); White Blood Cell Count 19.5 10^3/uL (4.8-10.8)
[2023-07-19 05:22] LABS: Blood Urea Nitrogen 23 mg/dl (7-17); Calcium 8.7 mg/dl (8.4-10.2); Carbon Dioxide 30 mmol/L (22-30); Chloride 101 mmol/L (98-107); Estimated Creatinine Clearance 39 ml/min; Glucose 86 mg/dl (70-99); Magnesium 2.5 mg/dl (1.6-2.3); Phosphorus 5.3 mg/dl (2.5-4.5); Potassium 4.3 mmol/L (3.5-5.1); Sodium 137 mmol/L (135-145); eGFR 59.12
--- NOTE | 2023-07-19 07:47 | W.PN.CD ---
Today's Communication / Plan
-
- Start IV lasix
- start scheduled Midodrine.
Impression / Plan
-
Background: 72 yo female with metastatic breast cancer, on salvage therapy with Halaven, CAD with stenting 2008, has been in ICU for treatment of ? septic shock in setting of ? suspected PNA. She is on antibiotics and was on Levophed. She reports
some SOB, and also edema
HFpEF
- Fluidoverloaded
- Continue IV Furosemide - 40 mg IV QD for now.
- RHC -07/18/23
RA: 17
RV: 40/18
PA: 40/20
PCWP: 24
Oximetry: Ao 96%, PA 57%, cardiac output 3.5, cardiac index 2.3
CONCLUSION: Mild pulmonary hypertension with elevated left and right heart filling pressures and normal cardiac output. Patient is likely mildly fluid overloaded
- once decongested we will add GDMT (SGLT inhibitor, ARNI, and MRA (Aldactone)
Low BP => improved
- off levo
- Will start Midodrine 5 mg BID
- PRN Midodrine q4h
Metastatic breast CA, continuing on active treatment and full code
CAD, remote AL, prior PCI/sent
Anemia, Hgb 7.5
Subjective:
Feels a bit better. no active complaints.
Echo 07/14/2023: LVEF 70-75%, stage II diastolic dysfxn, mild/mod MR/. Severe TR, est PASP39 mmHg
Physical Exam
Vital Signs/Labs
Vital Signs
Temp Pulse Resp BP Pulse Ox
97.8 F 85 16 97/62 95
07/19/23 07:29 07/19/23 07:29 07/19/23 07:29 07/19/23 07:29 07/19/23 07:29
07/18/23 07/19/23 07/20/23
06:59 06:59 06:59
Actual Weight 50.065 kg 49.895 kg
07/19/23 04:26
07/19/23 04:26
PT 17.9 Sec (11.4-14.6) H 07/14/23 16:16
INR 1.49 07/14/23 16:16
APTT 36.8 Sec (23.4-35.0) H 07/14/23 16:16
Magnesium 2.5 mg/dl (1.6-2.3) H 07/19/23 04:26
07/13/23 07/16/23
14:43 04:34
[id number]-Sxsjcdvzijm Pept [id number]
Physical Exam
Constitutional: No acute distress and Comfortable
EENT: Anicteric
Cardiovascular: Rhythm & rate is regular, Pedal edema is absent and JVD pressure is normal
Respiratory: Respiratory effort normal and Lungs clear to auscul.
GI: Soft, Non tender and Normal bowel sounds
Neuro/Psych: Alert, Oriented and AO x 3
Data Reviewed
-
Date of Service: July 19, 2023
Medical Decision Making: Reviewed Test Results, Independent Historian Assessment, Test Interpretation and Review of Case with other Provider
EKG: Tracing Personally Visualized and interpreted
Echo: Report Reviewed by me
Medical Tests (PFT, Pathology etc): Image Personally Visualized and interpreted
Labs: Labs Reviewed by me
Old Records: Reviewed
[2023-07-19] MEDS: DUONEB 3 ML INH ×3 (07:49→20:10)
--- NOTE | 2023-07-19 08:14 | W.PN.ONC2 ---
Today's Communication / Plan
-
See above note for full details. Recommending home hospice.
Impression
Impression
Metastatic breast cancer, on salvage chemotherapy with Halaven (4th line metastatic); mets to liver, brain, bones, nodes with POD 04/2023
Leukocytosis, from Rolvedon (GCSF, 07/05/23, plus steroids)
HFPEF
Plan
Plan
Patient with worsening functional status on Halaven chemotherapy that prompted hospitalization.
Right heart catheterization relatively unremarkable. No evidence to suggest extensive heart failure as cause of pulmonary parenchymal disease
CT scan revealed extensive parenchymal airspace disease without clear-cut evidence of CHF by right heart catheterization.
At this point, we had a long conversation with her as well as her daughter Saumya.
Reviewed the fact that her quality life is actually worse on (fourth line Halaven) chemotherapy and I recommend a chemotherapy break and transition to palliative care alone with home hospice.
At this point, her functional status is to poor to resume additional chemotherapy.
Palliative care with home hospice is actually the most appropriate and best treatment option at this point going forward.
60 minute contact time including reviewing her chart, discussing with patient as well as her daughter.
Consult to hospice was made.
Subjective/Objective
Chief Complaint
ACS Heme Onc
Subjective
Feeling much better. Very sick last week when admitted. Was hoping to be able to resume chemotherapy.
Vital Signs:
Vital Signs
Temp Pulse Resp BP Pulse Ox
97.8 F 85 16 97/62 95
07/19/23 07:29 07/19/23 07:29 07/19/23 07:29 07/19/23 07:29 07/19/23 07:29
Lab Results:
Laboratory Data
WBC 19.5 10^3/uL (4.8-10.8) H 07/19/23 04:26
Hgb 7.5 g/dL (12.0-16.0) L 07/19/23 04:26
Plt Count 64 10^3/uL (130-400) L 07/19/23 04:26
PT 17.9 Sec (11.4-14.6) H 07/14/23 16:16
INR 1.49 07/14/23 16:16
APTT 36.8 Sec (23.4-35.0) H 07/14/23 16:16
eGFR 59.12 07/19/23 04:26
Physical Exam
HEENT: Other (alopecia. NAD)
Cardiology: S1 and S2
Pulmonary: Clear
GI: Soft
Extremities: No C/C/E
Orders
Orders
Orders From Last 24 Hours
07/19/23 08:10
Case Management Consult ONCE
--- NOTE | 2023-07-19 08:35 | W.PN.HOSP.TC ---
Today's Communication/Plan
-
prednisone taper
lasix midodrine as per cardio
discharge planning home hospice in AM tomorrow
Assessment / Plan
Assessment / Plan
HPI: 72-year-old female past medical history of metastatic breast cancer on chemotherapy, CAD, COPD, hypercholesteremia, presenting to the emergency room because patient had lab work done at [facility] yesterday and family received a phone call stating
the lab work was abnormal and she needed to go to the hospital. Labs showed significant leukocytosis, elevated ANC, acute kidney injury and mild transaminitis. Over the past few days patient has gotten very weak and difficulty caring for herself
and performing activities of daily living. Patient was not even able to get up and walk to the bathroom on her own at this time.
Patient's last chemotherapy was on June 26 and she is scheduled for a new round this coming Monday. She has mild cough with green sputum and mild shortness of breath for the past few days. Patient has not had any fever, change in oral intake,
abdominal pain or nausea vomiting or diarrhea. He has also had increased lower extreme edema. No weight gain or weight loss.
Patient has been seeing palliative care within the past 2 days given her guarded prognosis. The metastatic breast cancer with metastasis to lining of brain, bone and back and liver but not to lung as per their knowledge. Patient smokes 1 cigarette
a day. No alcohol use.
#Hypotension
Unable to give IV fluids secondary to CHF
Status post Levophed
started on scheduled Midodrine as per cardio
Stable for tele
# Acute heart failure with a preserved ejection fraction
#Bilateral lower extremity edema
Echo with an EF 70-75%, stage II diastolic dysfunction, mild pulmonary hypertension
Cardiac BNP of 11,000
Cardiology eval appreciated s/p right heart cath 07/17 appreciated likely mild fluid overload
diuresis cont as per cardio
# Dyspnea multifactorial secondary to left lower lobe pneumonia/possible loculated pleural effusion as well as CHF exacerbation
Treat as below
#Left lower lobe pneumonia ruled out
Patient has a leukocytosis with bandemia
COVID-negative, influenza negative
Chest CT shows CHF, osseous metastases, right mastectomy
Procalcitonin 0.64 likely from cancer, MRSA neg
Pulm eval appreciated cont prednisone taper, bronchodilators
Appreciate oncology input, rising white count due to patient receiving G-CSF 07/05/23 & steroids
Vancomycin discontinued, Zosyn discontinued, azithromycin completed
#Hypokalemia
Repleted and resolved
# Transaminitis likely secondary to hepatic venous congestion versus liver metastases
Monitor with diuresis
# Acute on chronic normocytic anemia likely chemotherapy related
H&H stable
Monitor, transfuse for hemoglobin less than 7.0
#History of metastatic breast cancer with metastases to lining of brain, bone, back and liver
Patient seeing palliative care outpatient, follows up with Dr. Lepe, currently getting outpatient chemo
Continue oxycodone and Zofran
Oncology eval appreciated home hospice recommended. Patient family in agreement with home hospice planned for tomorrow.
Code status since changed to DNR as per patient
Coronary artery disease with history of stents
COPD
Hypercholesterolemia
Dementia/depression
-Continue memantine
-Continue Zoloft
DVT prophylaxis�subcu Lovenox
DNR as per patient
PT/OT appreciated HH
discussed with patient and her daughter Saumya
Total time spent to see the patient on the floor, examine the patient, review data and lab results, discuss treatment plan with patient, nursing staff around 55 minutes.
Physical Exam
General: Appears chronically ill, no acute distress
HEENT: Normocephalic, Atraumatic, EOMI, MMM
Respiratory: Clear to auscultation b/l
Cardiac: Normal S1/S2, Regular Rate and Rhythm
Chest wall: Port noted on right chest wall
GI: Soft, Nontender, Nondistended, Normal Bowel Sounds
Extremities: No Clubbing, Cyanosis
Bilateral lower extremity edema noted
Neuro: Nonfocal/Grossly Intact
Psych: Calm, Cooperative
Anticipated Discharge: Within 24 hours
Subjective/Interval History
-
Date of Service: July 19, 2023
reports feeling well. respiratory status stable on room air. Daughter Saumya present during evaluation.
Objective Data
-
Labs:
Laboratory Results
07/19/23
04:26
WBC 19.5 H
Hgb 7.5 L
Hct 24.5 L
Plt Count 64 L
Sodium 137
Potassium 4.3
Chloride 101
Carbon Dioxide 30
BUN 23 H
Creatinine 1.0
Glucose 86
Calcium 8.7
Vital Signs:
Vital Signs
Temp Pulse Resp BP Pulse Ox
97.8 F 85 16 97/62 95
07/19/23 07:29 07/19/23 07:29 07/19/23 07:29 07/19/23 07:29 07/19/23 07:29
I&O
07/18/23 07/19/23 07/20/23
06:59 06:59 06:59
Intake Total 677 / 677 240 / 240
Output Total 100 / 100
Balance 577 / 577 240 / 240
--- NOTE | 2023-07-19 08:58 | W.PN.PUL.V3 ---
Today's Communication / Plan
-
Wean oxygen
Diuresis per cardiology
Right heart catheterization noted
Oncology note reviewed-break from chemotherapy, home hospice was recommended
Assessment
-
Assessment: 72-year-old female tobacco smoker with a PMHx of CAD s/p coronary stents x 2, hyperlipidemia, history of metastatic breast cancer on chemotherapy with history of brain radiation (2022), GERD, ADHD and anemia who presents with abnormal
outpatient labs (worsening leukocytosis) with altered mental status and shortness of breath. Patient also has been having worsening lower extremity swelling and increased sputum production. Labs show elevated proBNP of 11,200 and leukocytosis to
29.6. Imaging concerning for acute congestive heart failure +/- pneumonia. She was started on antibiotics, diuresed and initially admitted to telemetry. Unfortunately her blood pressure dropped with her SBP in the 80s on 07/14/2023 requiring
vasopressors. Patient now transferred to the ICU for further care and critical care services consulted for additional management/recommendations.
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
radiation therapy and Arimidex, CAD s/p angioplasty with stent placement x 2 (2008), hyperlipidemia, history of adjustment disorder with depressed mood, osteoporosis, anemia due to antineoplastic chemotherapy
Impression:
#Shock due to CAP - shock state resolved
#CAP
#Severe centrilobular emphysema with suspected COPD with acute exacerbation
#Tobacco use disorder
#Acute HFpEF exacerbation with acute pulmonary edema - improving
#Acute respiratory failure with hypoxemia due to above - improved
#Stage II diastolic dysfunction with valvular heart disease (mild�moderate MR; mild�moderate AAS)
#History of metastatic breast cancer (HR positive/HER2 negative) with bone, liver, dural brain metastasis, stage IV on salvage chemotherapy with Hx of brain radiation (2022)
#History of invasive ductal carcinoma s/p mastectomy (2009 � right breast), followed by chemotherapy/radiation (initially stage IIb)
#History of radiation fibrosis
#Chemotherapy-induced anemia
#CAD s/p stents
Plan:
Pulmonary status relatively stable
Continue attempts at weaning FiO2--currently on room air
Assess discharge exertional supplemental oxygen needs prior to discharge
Aspiration precautions continues
Mucolytic's
Nebulizers continue
Prednisone taper-no change today-currently on 30 mg daily
Follow-up cultures
Empiric antibiotics
Ongoing diuresis as tolerated
Monitor renal function, electrolytes, intake/output, lower extremity edema and weight
Replace electrolytes as needed
Echocardiogram noted-summarized below
Cardiology following-correspondence reviewed-diuretics intravenously reinitiated
Right heart catheterization- 07/18/23-RA 17, PA 40/20, PCWP-24, cardiac index 2.3, elevated left and right heart filling pressures-suspected mild fluid overload
Oncology following-correspondence reviewed
Dr. Lepe and saw patient and recommending home hospice
Smoking cessation counseling ongoing
Nicotine patch
DVT prophylaxis
Nutrition
Early mobilization/physical therapy
Outpatient pulmonary [id number], etc.
Data:
CXR 07-13-2023:
1. Hyperinflation, consistent with COPD.
2. Reticular interstitial thickening, suggestive of interstitial fibrosis or lymphangitic spread of tumor.
3. Nodular thickening of the left pleura at the left lung base. Differential diagnosis includes pneumonia, loculated pleural fluid and metastasis.
4. Small right pleural effusion is suspected.
CXR 07-15-2023:
Stable diffuse reticular interstitial thickening throughout the right and left lungs. No focal interstitial or airspace opacity to indicate superimposed pneumonia. The cardiomediastinal margins are stable. Stable right [id number] catheter, distal
tip at the inferior margin of the right atrium. No pneumothorax. As stable mild localized pleural thickening involving the lateral left mid to lower hemithorax.
CT Chest with IV contrast 07-13-2023:
IMPRESSION:
1). Moderate congestive heart failure
2). Extensive blastic osseous metastasis
3). Right mastectomy
TTE 07-14-2023:
Hyperdynamic left ventricular systolic function. LV ejection fraction is 70-
75%.
Stage II diastolic dysfunction suggestive of abnormal relaxation and increased
filling pressures.
Tiara EPIQ left ventricular global longitudinal strain is -20.1% (normal).
Mild/moderate mitral regurgitation.
Mild/moderate aortic stenosis (low flow, low gradient). Peak mean gradients are
12/5 mmHg, with calculated SATNAM 1.4cm2. SVI 29. Mild aortic regurgitation.
Severe tricuspid regurgitation. Mildly elevated PASP. Estimated pulmonary
artery pressure of 39 mmHg assuming a right atrial pressure of 8 mmHg.
No prior study available for comparison.
Subjective Data
-
Date of Service:
Date of Service: July 19, 2023
Chief Complaint: Pulmonary Follow Up and Dyspnea Follow Up
Subjective:
She denies any shortness of breath on room air at rest, no chest congestion, productive cough, no chest pain or abdominal pain
Review of Systems
General: Other ( Per HPI)
Objective Data
Data Reviewed
Vital Signs / I&O:
Vital Signs
Temp Pulse Resp BP Pulse Ox
97.8 F 85 16 97/62 95
07/19/23 07:29 07/19/23 07:29 07/19/23 07:29 07/19/23 07:29 07/19/23 07:29
Intake and Output
07/18/23 07/19/23 07/20/23
06:59 06:59 06:59
Intake Total 677 / 677 240 / 240
Output Total 100 / 100
Balance 577 / 577 240 / 240
SaO2: 95
Nasal Cannula flow liters per minute: 1.5
Physical Exam
General: Respiratory Distress (Negative) and Comfortable
HEENT: Normocephalic and Anicteric
Cardiovascular: Regular Rhythm and Peripheral Edema (+1 lower extremity edema)
Respiratory: Wheeze (Forced expiratory), Crackles (Bibasilar), Rhonchi (Negative), Non-Labored Respirations and Accessory Resp Muscle Use (n)
GI: Soft, Non Distended and Non Tender
Neurology: Awake, Alert and No Motor Deficits
Skin: Warm, Good Color, Cyanosis (n) and Jaundice (n)
Labs/Micro/Reports
Lab Data
07/19/23 04:26
07/19/23 04:26
Microbiology
07/13/23 15:15 Blood/Venous Blood Culture - Final
No Growth - Final Report
07/13/23 15:15 Blood/Venous Blood Culture - Final
No Growth - Final Report
[2023-07-19] MEDS: ZOLOFT 25 MG PO (09:01)
[2023-07-19] MEDS: LASIX 40 MG IV (09:01)
[2023-07-19] MEDS: DELTASONE 30 MG PO (09:01)
[2023-07-19] MEDS: NAMENDA 10 MG PO ×2 (09:01→20:39)
[2023-07-19] MEDS: LOW STRENGTH ASPIRIN 81 MG PO (09:01)
[2023-07-19] MEDS: OXYCONTIN (CONTROLLED RELEASE) 10 MG PO ×2 (09:01→20:39)
[2023-07-19] MEDS: FLUSH (NSS) 1 FLUSH IV (09:02)
[2023-07-19] MEDS: ProAmatine 5 MG PO ×2 (09:02→17:37)
--- NOTE | 2023-07-19 11:11 | CM ---
Patient and daughter, Saumya, seen bedside, provided list of home hospice agencies. CM confirmed address patient will discharge home to: [address] [place] [id number]. Patient and daughter agreeable to meet with Hospice, TT sent to
[facility]. CM will continue to follow for discharge planning needs and offer support.
Plan; home with hospice agency of family/patient choice.
--- NOTE | 2023-07-19 13:57 | HOSPNOTE ---
Addendum entered by [facility] Veliz RN 07/19/23 15:39:
Met with family and patient and they are in agreement with hospice care. The plan is to discharge tomorrow to home and the daughter will transport patient home. The patient and family understand that there are no treatments and hospitalization. The
patient stated she is a DNR. Attending and Case management updated.
Original Note:
Hospice referral received and will meet with patient and daughter. More information to follow.
--- NOTE | 2023-07-19 17:09 | PTCARENOTE ---
Pt AAO x3, SAAVEDRA; OOB to chair/BSC with assist x1; ambulated short distance in baker with assist x1/walker, perla well. VSS. Telemetry:NSR. On room air- pulse ox 92%, pt denies SOB. Abd soft, perla PO, appetite poor. Voids on BSC without difficulty.
Resting in chair at present, no c/o; family at bedside. Will continue to monitor.
[2023-07-19] MEDS: LOVENOX 30 MG SC (17:36)
[2023-07-20 03:29] VITALS: BP 106/63
[2023-07-20 06:00] VITALS: BMI 18.4
--- NOTE | 2023-07-20 07:07 | W.PN.HOSP.TC ---
Addendum entered and electronically signed by Maria Eugenia Estrella MD 07/21/23 07:12:
cachectic
Original Note:
Today's Communication/Plan
-
discharge
Assessment / Plan
Assessment / Plan
HPI: 72-year-old female past medical history of metastatic breast cancer on chemotherapy, CAD, COPD, hypercholesteremia, presenting to the emergency room because patient had lab work done at [facility] yesterday and family received a phone call stating
the lab work was abnormal and she needed to go to the hospital. Labs showed significant leukocytosis, elevated ANC, acute kidney injury and mild transaminitis. Over the past few days patient has gotten very weak and difficulty caring for herself
and performing activities of daily living. Patient was not even able to get up and walk to the bathroom on her own at this time.
Patient's last chemotherapy was on June 26 and she is scheduled for a new round this coming Monday. She has mild cough with green sputum and mild shortness of breath for the past few days. Patient has not had any fever, change in oral intake,
abdominal pain or nausea vomiting or diarrhea. He has also had increased lower extreme edema. No weight gain or weight loss.
Patient has been seeing palliative care within the past 2 days given her guarded prognosis. The metastatic breast cancer with metastasis to lining of brain, bone and back and liver but not to lung as per their knowledge. Patient smokes 1 cigarette
a day. No alcohol use.
#Hypotension
Unable to give IV fluids secondary to CHF
Status post Levophed downgraded to Tele
started on scheduled Midodrine as per cardio
# Acute heart failure with a preserved ejection fraction
#Bilateral lower extremity edema
Echo with an EF 70-75%, stage II diastolic dysfunction, mild pulmonary hypertension
Cardiac BNP of 11,000
Cardiology eval appreciated s/p right heart cath 07/17 appreciated likely mild fluid overload
diuresis continued, po lasix 40 mg daily on discharge
# Dyspnea multifactorial secondary to left lower lobe pneumonia/possible loculated pleural effusion as well as CHF exacerbation
Treated as below
#Left lower lobe pneumonia ruled out
Patient has a leukocytosis with bandemia
COVID-negative, influenza negative
Chest CT shows CHF, osseous metastases, right mastectomy
Procalcitonin 0.64 likely from cancer, MRSA neg
Pulm eval appreciated cont prednisone taper, bronchodilators
Appreciate oncology input, rising white count due to patient receiving G-CSF 07/05/23 & steroids
White count improving, H&H stable
completed empiric abx Vancomycin Zosyn azithromycin
#Hypokalemia
Repleted and resolved
# Transaminitis likely secondary to hepatic venous congestion versus liver metastases
Resolving
# Acute on chronic normocytic anemia likely chemotherapy related
H&H stable
Monitor, transfuse for hemoglobin less than 7.0
#History of metastatic breast cancer with metastases to lining of brain, bone, back and liver
Patient seeing palliative care outpatient, follows up with Dr. Lepe, pt on outpatient chemo prior to admission
Continue oxycodone and Zofran
Oncology eval appreciated home hospice recommended. Patient family in agreement with home hospice planned for today.
Code status since changed to DNR as per patient
Coronary artery disease with history of stents
COPD
Hypercholesterolemia
Dementia/depression
-Continue memantine
-Continue Zoloft
DVT prophylaxis�subcu Lovenox
DNR as per patient
PT/OT appreciated HH
Medically stable for discharge home hospice outpatient follow up recommendations depending on goals of care.
Total Time Preparing Discharge ___50____ minutes including examination of the patient, summary of the hospital stay, instructions for continuing care to all relevant caregivers; and preparation of discharge records, prescriptions, and referral
forms if necessary.
Physical Exam
General: Appears chronically ill, no acute distress
HEENT: Normocephalic, Atraumatic, EOMI, MMM
Respiratory: Clear to auscultation b/l
Cardiac: Normal S1/S2, Regular Rate and Rhythm
Chest wall: Port noted on right chest wall
GI: Soft, Nontender, Nondistended, Normal Bowel Sounds
Extremities: No Clubbing, Cyanosis
Bilateral lower extremity edema noted
Neuro: Nonfocal/Grossly Intact
Psych: Calm, Cooperative
Anticipated Discharge: Today
Subjective/Interval History
-
Date of Service: July 20, 2023
Seen and examined at bedside in no acute distress sitting up comfortably in bed. Reports feeling well. Denies new acute issues at this time. Eager to go home.
Objective Data
-
Vital Signs:
Vital Signs
Temp Pulse Resp BP Pulse Ox
98 F 87 15 106/63 91
07/20/23 03:29 07/20/23 03:29 07/20/23 03:29 07/20/23 03:29 07/20/23 03:29
I&O
07/19/23 07/20/23 07/21/23
06:59 06:59 06:59
Intake Total 240 / 240 740 / 740
Output Total 950 / 950
Balance 240 / 240 -210 / -210
[2023-07-20 07:30] VITALS: BP 109/61
[2023-07-20] MEDS: DUONEB 3 ML INH (07:43)
[2023-07-20] MEDS: LASIX 40 MG PO (08:27)
[2023-07-20] MEDS: NAMENDA 10 MG PO (08:28)
[2023-07-20] MEDS: LOW STRENGTH ASPIRIN 81 MG PO (08:28)
[2023-07-20] MEDS: ProAmatine 5 MG PO (08:28)
[2023-07-20] MEDS: ZOLOFT 25 MG PO (08:28)
[2023-07-20] MEDS: DELTASONE 20 MG PO (08:28)
[2023-07-20] MEDS: OXYCONTIN (CONTROLLED RELEASE) 10 MG PO (08:28)
--- NOTE | 2023-07-20 08:32 | W.PN.CD ---
Today's Communication / Plan
-
discussed with patient, and she has chosen home hospice
Impression / Plan
-
Background: 72 yo female with metastatic breast cancer, on salvage therapy with [place], CAD with stenting 2008, has been in ICU for treatment of septic shock in setting of suspected PNA, and also acute HFPEF
Goal of care: discussed with patient, and she has chosen home hospice.
Acute HFpEF
Metastatic breast CA
CAD, remote PR, prior PCI/sent
Anemia
Echo 07/14/2023: LVEF 70-75%, stage II diastolic dysfxn, mild/mod MR/. Severe TR, est PASP39 mmHg
Physical Exam
Vital Signs/Labs
Vital Signs
Temp Pulse Resp BP Pulse Ox
98 F 85 14 106/63 99
07/20/23 03:29 07/20/23 07:44 07/20/23 07:44 07/20/23 03:29 07/20/23 07:44
07/19/23 07/20/23 07/21/23
06:59 06:59 06:59
Actual Weight 49.895 kg 48.563 kg
07/19/23 04:26
07/19/23 04:26
PT 17.9 Sec (11.4-14.6) H 07/14/23 16:16
INR 1.49 07/14/23 16:16
APTT 36.8 Sec (23.4-35.0) H 07/14/23 16:16
Magnesium 2.5 mg/dl (1.6-2.3) H 07/19/23 04:26
07/13/23 07/16/23
14:43 04:34
[id number] Pept [id number]
Physical Exam
Constitutional: No acute distress and Comfortable
EENT: Moist mucous membranes
Cardiovascular: Rhythm & rate is regular, Systolic murmur absent and Pedal edema present
Respiratory: Respiratory effort normal
Neuro/Psych: AO x 3
Data Reviewed
-
Date of Service: July 20, 2023
EKG: Other (Tele: SR 90s, brief SVT)
--- NOTE | 2023-07-20 08:52 | W.DCSUMMARY ---
Discharge Summary
Discharge Data
Date of Admission: 07/13/23
Date of Discharge: 07/20/23
-
Pending Results: No
Hospital Course
72F past medical history of metastatic breast cancer on chemotherapy, CAD, COPD, hypercholesteremia, p/w abnormal lab results. Labs showed significant leukocytosis, elevated ANC, acute kidney injury and mild transaminitis. Over the past few days
patient has gotten very weak and has had difficulty caring for herself and performing activities of daily living. Patient's last chemotherapy was on June 26 and she was scheduled for a new round coming Monday. She had mild cough with green
sputum and mild shortness of breath for the past few days. Patient has not had any fever, change in oral intake, abdominal pain or nausea vomiting or diarrhea. She also noted increased lower extremity edema. No weight gain or weight loss.
Patient has been seeing palliative care past 2 days given her guarded prognosis. Metastatic breast cancer with metastasis to lining of brain, bone and back and liver but not to lung as per patient's knowledge. Patient smokes 1 cigarette a day. No
alcohol use. Hypotension, unable to give IV fluids secondary to CHF. Patient was briefly treated Levophed. Started on scheduled Midodrine as per cardio and eventually weaned of Levophed. Acute heart failure with a preserved ejection fraction,
bilateral lower extremity edema, Echo with an EF 70-75%, stage II diastolic dysfunction, mild pulmonary hypertension. Cardiac BNP 11,000. Cardiology evaluated and recommended right heart cath 07/17, results noted likely mild fluid overload.
Diuresis was continued and eventually transitioned to PO lasix 40 mg daily on discharge. Dyspnea multifactorial secondary to left lower lobe pneumonia/possible loculated pleural effusion as well as CHF exacerbation. Left lower lobe pneumonia was
ruled out. COVID-negative, influenza negative. Chest CT showed CHF, osseous metastases, right mastectomy.
Procalcitonin 0.64 likely from cancer, MRSA neg. Pulm evaluated and recommended prednisone taper, bronchodilators. Oncology assessed rising white count likely due to patient receiving G-CSF 07/05/23 & steroids. White count improving, H&H stable,
patient completed empiric abx Vancomycin Zosyn azithromycin when pna was ruled out.
Oncology evaluated and recommended home hospice recommended. Patient family in agreement with home hospice, patient relatively stable, was discharged home with home hospice and outpatient follow up recommendations.
Discharge Plan
-
Patient Disposition: Home with Hospice
Discharge Diagnosis/Procedures: cardiac catheterization, acute heart failure with preserved ejection fraction, Metastatic Breast Cancer, Chronic Obstructive Pulmonary Disease Exacerbation, Hyperlipidemia, Coronary Artery Disease,
Dementia/Depression, Hypotension, Anemia
Condition: Fair
Diet: Regular
Activity: As tolerated
Driving Restrictions: No driving
Bathing Restrictions: None
Specialty Instructions: Weigh Daily- Call MD for wt gain/loss 3 lbs overnight/5 lbs in 1 week
Activity Restrictions/Additional Instructions:
Please follow up with Hospice on discharge and primary care provide in 1 week of discharge. If in line with goals of care, continue follow up with Oncology, Cardiology, and Pulmonology
memantine 10 mg tablet 10 mg PO BID Dementia
oxycodone myristate 9 mg capsule sprinkle extended release 12 hr(DON'T CRUSH) (Xtampza ER) 9 mg PO BID Pain
ondansetron HCl 4 mg tablet 4 mg PO Q8HPRN PRN nausea
sertraline 25 mg tablet (Zoloft) 25 mg PO DAILY Depression/Anxiety
acetaminophen 325 mg tablet (Tylenol) 650 mg PO Q4HPRN PRN mild pain
docusate sodium 100 mg capsule (Colace) 100 mg PO HS STOOL SOFTENER
xylitol 500 mg mucosal adhesive tablet 1 mg mucous membrane Q2HPRN PRN dry mouth
albuterol sulfate 90 mcg/actuation aerosol inhaler 2 puff inhalation Q6H PRN shortness of breath or wheezing
aspirin 81 mg chewable tablet (Children's Aspirin) 81 mg PO DAILY Coronary artery disease
furosemide 40 mg tablet 40 mg PO DAILY heart failure
midodrine 5 mg tablet 5 mg PO BID@0800,1800 Hypotension
Prednisone taper prescribed for COPD exacerbation: 20 mg daily day 1, then 10 mg daily day 2 and 3, then stop
Please take medications as prescribed/recommended and follow up with hospicem, primary care provider, and/or other healthcare provider involved in your care for refills and/or further adjustment to your medication regimen as necessary.
Instructions: *CBC Heart Failure Instructions
Stand Alone Forms: DC Instructions- Cath/EP Lab
Referrals:
Naseem Yousif MD [Active] - in three to four weeks
Javed Yañez MD [Active] - None (Patient transitioned to hospice at home-no need for pulmonary follow-up unless family requests)
Mahogany Freitas MD [Family Provider] - in one week
Trell Lepe MD [Active] - in two to four weeks
Prescriptions:
New
midodrine 5 mg Tablet
5 mg PO BID@0800,1800 30 Days Qty: 60 0RF
albuterol sulfate 90 mcg/actuation HFA aerosol inhaler
2 puff inhalation Q6H PRN (Reason: shortness of breath or wheezing) Qty: 8.5 0RF
furosemide 40 mg Tablet
40 mg PO DAILY 30 Days Qty: 30 0RF
aspirin [Children's Aspirin] 81 mg Tablet,Chewable
81 mg PO DAILY 30 Days Qty: 30 0RF
prednisone 10 mg Tablet
See Rx Instructions .ROUTE .COMPLEX Qty: 4 0RF
Rx Instructions:
Take By Mouth:
20 mg daily x1 day, 10 mg daily x2 days, then stop
Continued
memantine 10 mg Tablet
10 mg PO BID
Xtampza ER 9 mg Cap,Sprinkl,Er12hr(Dont Crush)
9 mg PO BID
sertraline [Zoloft] 25 mg Tablet
25 mg PO DAILY
ondansetron HCl 4 mg Tablet
4 mg PO Q8HPRN PRN (Reason: nausea)
acetaminophen [Tylenol] 325 mg Tablet
650 mg PO Q4HPRN PRN (Reason: mild pain)
docusate sodium [Colace] 100 mg Capsule
100 mg PO HS
xylitol 500 mg Muco-Adhesive Buccal Tablet
1 mg MUCOUS MEMBRANE Q2HPRN PRN (Reason: dry mouth)
Discharge Orders:
Discharge Patient (As Directed); Ordered 07/20/23
Ordered By: Maria Eugenia Estrella
Discharge Date and Time
Discharge Date/Time: 07/20/23 13:36
Print Language: SPANISH
--- NOTE | 2023-07-20 09:55 | W.PN.PUL.V3 ---
Today's Communication / Plan
-
Diuresis as tolerated
Comfort a priority
Outpatient hospice
Assessment
-
Assessment: 72-year-old female tobacco smoker with a PMHx of CAD s/p coronary stents x 2, hyperlipidemia, history of metastatic breast cancer on chemotherapy with history of brain radiation (2022), GERD, ADHD and anemia who presents with abnormal
outpatient labs (worsening leukocytosis) with altered mental status and shortness of breath. Patient also has been having worsening lower extremity swelling and increased sputum production. Labs show elevated proBNP of 11,200 and leukocytosis to
29.6. Imaging concerning for acute congestive heart failure +/- pneumonia. She was started on antibiotics, diuresed and initially admitted to telemetry. Unfortunately her blood pressure dropped with her SBP in the 80s on 07/14/2023 requiring
vasopressors. Patient now transferred to the ICU for further care and critical care services consulted for additional management/recommendations.
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
radiation therapy and Arimidex, CAD s/p angioplasty with stent placement x 2 (2008), hyperlipidemia, history of adjustment disorder with depressed mood, osteoporosis, anemia due to antineoplastic chemotherapy
Impression:
#Shock due to CAP - shock state resolved
#CAP
#Severe centrilobular emphysema with suspected COPD with acute exacerbation
#Tobacco use disorder
#Acute HFpEF exacerbation with acute pulmonary edema - improving
#Acute respiratory failure with hypoxemia due to above - improved
#Stage II diastolic dysfunction with valvular heart disease (mild�moderate MR; mild�moderate AAS)
#History of metastatic breast cancer (HR positive/HER2 negative) with bone, liver, dural brain metastasis, stage IV on salvage chemotherapy with Hx of brain radiation (2022)
#History of invasive ductal carcinoma s/p mastectomy (2008 � right breast), followed by chemotherapy/radiation (initially stage IIb)
#History of radiation fibrosis
#Chemotherapy-induced anemia
#CAD s/p stents
Plan:
Pulmonary status continues to be stable
Continue attempts at weaning FiO2--currently on room air
Assess discharge exertional supplemental oxygen needs prior to discharge
Aspiration precautions continues
Mucolytic's
Nebulizers continue
Prednisone taper
Finite course of antibiotics
Diuresis per cardiology
Monitor renal function, electrolytes, intake/output, lower extremity edema and weight
Replace electrolytes as needed
Echocardiogram noted-summarized below
Cardiology following-correspondence reviewed-diuretics intravenously reinitiated
Note: Right heart catheterization- 07/18/23-RA 17, PA 40/20, PCWP-24, cardiac index 2.3, elevated left and right heart filling pressures-suspected mild fluid overload
Oncology following-correspondence reviewed
Dr. Lepe and saw patient and recommending home hospice
Smoking cessation counseling ongoing
Nicotine patch
DVT prophylaxis
Nutrition
Early mobilization/physical therapy
Dr. Prather reviewed with daughter at the bedside
Patient will be discharged home with hospice-pulmonary will sign off-please call with questions
Data:
CXR 07-13-2023:
1. Hyperinflation, consistent with COPD.
2. Reticular interstitial thickening, suggestive of interstitial fibrosis or lymphangitic spread of tumor.
3. Nodular thickening of the left pleura at the left lung base. Differential diagnosis includes pneumonia, loculated pleural fluid and metastasis.
4. Small right pleural effusion is suspected.
CXR 07-15-2023:
Stable diffuse reticular interstitial thickening throughout the right and left lungs. No focal interstitial or airspace opacity to indicate superimposed pneumonia. The cardiomediastinal margins are stable. Stable right [id number] catheter, distal
tip at the inferior margin of the right atrium. No pneumothorax. As stable mild localized pleural thickening involving the lateral left mid to lower hemithorax.
CT Chest with IV contrast 07-13-2023:
IMPRESSION:
1). Moderate congestive heart failure
2). Extensive blastic osseous metastasis
3). Right mastectomy
TTE 07-14-2023:
Hyperdynamic left ventricular systolic function. LV ejection fraction is 70-
75%.
Stage II diastolic dysfunction suggestive of abnormal relaxation and increased
filling pressures.
Tiara EPIQ left ventricular global longitudinal strain is -20.1% (normal).
Mild/moderate mitral regurgitation.
Mild/moderate aortic stenosis (low flow, low gradient). Peak mean gradients are
12/5 mmHg, with calculated SATNAM 1.4cm2. SVI 29. Mild aortic regurgitation.
Severe tricuspid regurgitation. Mildly elevated PASP. Estimated pulmonary
artery pressure of 39 mmHg assuming a right atrial pressure of 8 mmHg.
No prior study available for comparison.
Subjective Data
-
Date of Service:
Date of Service: July 20, 2023
Chief Complaint: Pulmonary Follow Up and Dyspnea Follow Up
Subjective:
No complaints of worsening shortness of breath, chest pain or abdominal pain, no productive cough
Review of Systems
General: Other (Per HPI)
Objective Data
Data Reviewed
Vital Signs / I&O:
Vital Signs
Temp Pulse Resp BP Pulse Ox
97.7 F 81 14 109/69 99
07/20/23 07:30 07/20/23 08:28 07/20/23 07:44 07/20/23 08:28 07/20/23 08:30
Intake and Output
07/19/23 07/20/23 07/21/23
06:59 06:59 06:59
Intake Total 240 / 240 1220 / 1220
Output Total 950 / 950
Balance 240 / 240 270 / 270
SaO2: 99
Nasal Cannula flow liters per minute: 1.5
Physical Exam
General: Respiratory Distress (Negative) and Comfortable
HEENT: Normocephalic and Anicteric
Cardiovascular: Regular Rhythm and Peripheral Edema (+1 lower extremity edema)
Respiratory: Wheeze (Forced expiratory), Crackles (Bibasilar), Rhonchi (Negative), Non-Labored Respirations and Accessory Resp Muscle Use (n)
GI: Soft, Non Distended and Non Tender
Neurology: Awake, Alert and No Motor Deficits
Skin: Warm, Good Color, Cyanosis (n) and Jaundice (n)
Labs/Micro/Reports
Lab Data
07/19/23 04:26
07/19/23 04:26
Microbiology
07/13/23 15:15 Blood/Venous Blood Culture - Final
No Growth - Final Report
07/13/23 15:15 Blood/Venous Blood Culture - Final
No Growth - Final Report
--- NOTE | 2023-07-20 10:09 | PN.CDI ---
CDI
- -
CDI:
Physician Documentation Request
Admit Date: 07/13/23 17:32
Dear Doctor Delores,
Patient admitted with acute diastolic heart failure.
Please review the following and provide your response in the progress notes.
Clinical Indicators:
Height: 5' 4'
Weight: 107 lb 1 oz
BMI: 18.4
Please provide an associated diagnosis related to the abnormal BMI, such as:
Underweight
Cachectic
Anorexia
BMI is not significant
Other
BMI < or = to 19
Underweight
Weight Loss
Cachectic
Anorexia
Use of terms such as suspected, likely, concern for, or probable (associated with a specific diagnosis that is being evaluated, monitored, or treated as if it exists) are acceptable and can be coded in the inpatient setting, when documented at the
time of discharge.
Thank you,
Darlene VIGIL,RN,CCDS
CDI Specialist
Available via [place] text
Please use your independent medical judgment in providing your response.
[2023-07-20 13:24] VITALS: BP 108/61
--- NOTE | 2023-07-20 13:39 | CM ---
Patient and daughter seen bedside, discussed plan to discharge home with [facility]. CM reviewed IMM, signed, placed in patients chart. Daughter to provide transportation home. CM will continue to follow for discharge planning needs.
Plan; home with [facility].
== END 2023-07-20 13:36 | disposition hospice, home (50) | DRG 287 ==
LOC: 4 EAST ACU 17:32
PROVIDERS: Family Medicine; Internal Medicine Cardiovascular Disease; Physician Assistant Medical; ADMITTING PHYSICIAN Hospitalist; ATTENDING PHYSICIAN Internal Medicine; CONSULT PHYSICIAN Internal Medicine; CONSULT PHYSICIAN Internal Medicine Critical Care Medicine; CONSULT PHYSICIAN Internal Medicine Hematology & Oncology; EMERGENCY PHYSICIAN Emergency Medicine; FAMILY PHYSICIAN Family Medicine
PROC: 4A023N6 Measurement of Cardiac Sampling and Pressure, Right Heart, Percutaneous Approach (ICD-10-PCS; 2023-07-18)
DX: I50.33 Acute on chronic diastolic (congestive) heart failure (principal); N17.9 Acute kidney failure, unspecified; C78.00 Secondary malignant neoplasm of unspecified lung; C78.7 Secondary malignant neoplasm of liver and intrahepatic bile duct; C79.31 Secondary malignant neoplasm of brain; C79.51 Secondary malignant neoplasm of bone; J90 Pleural effusion, not elsewhere classified; F03.94 Unspecified dementia, unspecified severity, with anxiety; R57.9 Shock, unspecified; R64 Cachexia; Z68.1 Body mass index [BMI] 19.9 or less, adult; D72.829 Elevated white blood cell count, unspecified; C50.919 Malignant neoplasm of unspecified site of unspecified female breast; R74.01 Elevation of levels of liver transaminase levels; E78.00 Pure hypercholesterolemia, unspecified; J30.81 Allergic rhinitis due to animal (cat) (dog) hair and dander; F32.A Depression, unspecified; J30.2 Other seasonal allergic rhinitis; F17.210 Nicotine dependence, cigarettes, uncomplicated; F90.9 Attention-deficit hyperactivity disorder, unspecified type; I08.3 Combined rheumatic disorders of mitral, aortic and tricuspid valves; K21.9 Gastro-esophageal reflux disease without esophagitis; M81.0 Age-related osteoporosis without current pathological fracture; T45.1X5A Adverse effect of antineoplastic and immunosuppressive drugs, initial encounter; D64.81 Anemia due to antineoplastic chemotherapy; I27.20 Pulmonary hypertension, unspecified; D72.825 Bandemia; F43.21 Adjustment disorder with depressed mood; E87.6 Hypokalemia; J43.2 Centrilobular emphysema; I25.10 Atherosclerotic heart disease of native coronary artery without angina pectoris; Z66 Do not resuscitate; I25.2 Old myocardial infarction; Z95.5 Presence of coronary angioplasty implant and graft; Z82.49 Family history of ischemic heart disease and other diseases of the circulatory system; Z92.21 Personal history of antineoplastic chemotherapy; Z88.8 Allergy status to other drugs, medicaments and biological substances; Z91.02 Food additives allergy status; Z92.3 Personal history of irradiation; Z11.52 Encounter for screening for COVID-19; Z90.11 Acquired absence of right breast and nipple
CPT/HCPCS: 71045; 71046; 71260; 80048; 80053; 81003; 81015; 82607; 82728; 82746; 83540; 83550; 83605; 83735; 83880; 84100; 84145; 85025; 85027; 85610; 85730; 86850; 86900; 86901; 87040; 87502; 87641; 87811; 93005; 93306; 93356; 93451; 94640; 96374; 96375; 97116; 97163; 97167; 99285; 99406; C1894; Q9967